=== PATIENT | male | born 1955 | race Caucasian/White ===

== ENCOUNTER → 2016-10-06 | Outpatient (CLI) | payer BC | LOC: RAD 14:15 | PROVIDERS: ATTEND Urology | DX: R10.31 Right lower quadrant pain (principal) | CPT/HCPCS: 74176 ==

== ENCOUNTER 2016-11-20 08:35 | Day surgery (SDC) | payer BC ==
[~2016-11-20 08:35] MED LIST: EPINEPHRINE INJ 1 MG/10 ML DISP.SYRIN ONE; FLUMAZENIL INJ 0.5 MG/5 ML VIAL IV ONE; GLUCAGON,HUMAN RECOMB 1 MG INJ ONE; GLYCOPYRROLATE INJ 0.4 MG/2 ML VIAL ONE; LIDOCAINE 2% JELLY 30 ML TUBE ONE; NALOXONE HCL INJ/PF 0.4 MG/1 ML SDV ONE; ONDANSETRON HCL INJ/PF 4 MG/2 ML SDV ONE; PROMETHAZINE HCL INJ 25 MG/1 ML VIAL ONE
[2016-11-20] MEDS: MIDAZOLAM 2 MG/2 ML INJ ONE ×2 (09:03→09:07)
[2016-11-20] MEDS: FENTANYL CITRATE INJ/PF 100 MCG/2 ML AMPUL ONE ×2 (09:05→09:09)
[2016-11-20 10:25] VITALS: BP 137/93
--- NOTE | 2016-11-20 11:56 | OPERATIVE REPORT E ---
Operative Report NAME: FABRICIO PERERA : 1955 AGE: 61Y DATE OF SURGERY: 11/20/2016 ROOM: PREOPERATIVE DIAGNOSES: Change in bowel habits, constipation. POSTOPERATIVE DIAGNOSES: 1. External hemorrhoids. 2. Sigmoid diverticulosis. PROCEDURE: Colonoscopy. SURGEON: GISSEL ACEVEDO M.D. ANESTHESIA: Versed 2 and fentanyl 100. TISSUE REMOVED OR ALTERED: None. PROCEDURE: Rectal exam, external hemorrhoids. Sigmoid descending colon, diverticulosis. Transverse colon redundant, normal. Ascending colon normal. Cecum normal. Scope withdrawn from cecum, ascending, transverse, descending, sigmoid all the way to the rectum. CONCLUSION: 1. External hemorrhoids. 2. Sigmoid diverticulosis. 3. Redundant colon. 4. No polyps. RECOMMENDATIONS: Soft diet. Consider followup colonoscopy in 10 years. DICTATING PHYSICIAN: GISSEL ACEVEDO M.D. [id number] PHY#: [id number] ID: [id number] JOB#: [id number] ACCT: [id number] cc:GISSEL ACEVEDO M.D., SWETANG M.D. >
--- NOTE | 2016-11-20 11:56 | DISCHARGE SUMMARY E ---
Discharge Summary NAME: FABRICIO PERERA : 1955 AGE: 61Y ADMITTED: 11/20/2016 DISCHARGED: 11/20/2016 HISTORY: This 61-year-old male presents with constipation, change of bowel habits, remote history of polyps. Today's colonoscopy was completed to the cecum. No polyps were seen. Redundant colon. External hemorrhoids, mild. Sigmoid and descending colon diverticulosis, mild. DISCHARGE PLAN: 1. Soft diet. Advance to high-fiber diet in a few days. 2. Consider follow-up colonoscopy in 10 years. DICTATING PHYSICIAN: GISSEL ACEVEDO M.D. [id number] PHY#: [id number] ID: [id number] JOB#: [id number] ACCT: [id number] cc:GISSEL ACEVEDO M.D., SWETANG M.D. >
== END 2016-11-20 10:23 | disposition home or self-care (01) ==
LOC: END 08:35
PROVIDERS: ATTEND Specialist
PROC: 0DJD8ZZ Inspection of Lower Intestinal Tract, Via Natural or Artificial Opening Endoscopic (ICD-10-PCS; principal; 2016-11-20 09:00)
DX: K57.30 Diverticulosis of large intestine without perforation or abscess without bleeding (principal); K64.4 Residual hemorrhoidal skin tags; R19.4 Change in bowel habit; I25.10 Atherosclerotic heart disease of native coronary artery without angina pectoris; I10 Essential (primary) hypertension; Z79.899 Other long term (current) drug therapy; Z88.1 Allergy status to other antibiotic agents; Z91.018 Allergy to other foods
CPT/HCPCS: 45378; J2250; J3010; J1610; J2405; J0171; J2310; J2550; J3490

== ENCOUNTER 2016-11-26 13:21 | Emergency (ER) | payer BC ==
--- NOTE | 2016-11-26 13:39 | ER Document Report ---
ED Medical Screen (RME) - General Stated Complaint: FLANK PAIN Notes: 61 yo male c/o dysuria x 1 month. increased penile pain and bladder pain x 1 week. able to pass urine. no hematuria. + small voids. no fever, + nausea, no vomiting. seen by Dr Richard last month for similar pain, negative CT. + hx/0 kidney stones had colonoscopy last week, Dr Alaniz TRAVEL OUTSIDE OF THE [place] IN LAST 30 DAYS: No - Related Data Allergies/Adverse Reactions: Sulfa (Sulfonamide Antibiotics) Allergy (Severe, Verified 11/26/16 13:34) severe swelling in lips and tongue coffee (Coffea arabica) Adverse Reaction (Intermediate, Verified 11/26/16 13:34) SNEEZING, RUNNY NOSE wheat Adverse Reaction (Intermediate, Verified 11/26/16 13:34) SNEEZING,RUNNY NOSE TAPE Adverse Reaction (Intermediate, Uncoded 11/26/16 13:34) ITCHING Past Medical History - Past Medical History Cardiac Medical History: Reports: Hx Coronary Artery Disease, Hx Hypercholesterolemia, Hx Hypertension, Hx Peripheral Vascular Disease Denies: Hx Congestive Heart Failure, Hx Heart Attack Pulmonary Medical History: Reports: Hx Pneumonia Denies: Hx Asthma, Hx Bronchitis, Hx COPD, Hx Tuberculosis Neurological Medical History: Denies: Hx Cerebrovascular Accident, Hx Seizures Renal/ Medical History: Reports: Hx Benign Prostatic Hyperplasia, Hx Kidney Stones GI Medical History: Reports: Hx Gastroesophageal Reflux Disease, Hx Hiatal Hernia, Hx Ulcer. Denies: Hx Hepatitis Musculoskeltal Medical History: Reports Hx Arthritis Psychiatric Medical History: Reports: Hx Depression Infectious Medical History: Denies: Hx Hepatitis Past Surgical History: Reports: Hx Cardiac Catheterization - 3 stents, Hx Coronary Stent, Hx Orthopedic Surgery - R knee, Carpal Tunnel. Denies: Hx Open Heart Surgery, Hx Pacemaker - Immunizations Hx Diphtheria, Pertussis, Tetanus Vaccination: Yes Physical Exam - Vital signs Vitals: Temp Pulse Resp BP Pulse Ox 97.6 F 64 20 120/93 H 98 11/26/16 13:25 11/26/16 13:25 11/26/16 13:25 11/26/16 13:25 11/26/16 13:25 Course - Vital Signs Vital signs: Temp Pulse Resp BP Pulse Ox 97.6 F 64 20 120/93 H 98 11/26/16 13:25 11/26/16 13:25 11/26/16 13:25 11/26/16 13:25 11/26/16 13:25
[2016-11-26 14:10] LABS: APPEARANCE,URINE CLEAR; BILIRUBIN,URINE NEGATIVE (NEGATIVE); GLUCOSE, URINE NEGATIVE (NEGATIVE); KETONES,URINE NEGATIVE (NEGATIVE); LEUKOCYTE ESTERASE,URINE NEGATIVE (NEGATIVE); NITRITE,URINE NEGATIVE (NEGATIVE); PROTEIN,URINE NEGATIVE (NEGATIVE); URINE SPECIFIC GRAVITY 1.004; UROBILINOGEN,URINE NEGATIVE mg/dL (<2.0)
[2016-11-26 14:22] LABS: ALANINE AMINOTRANSFERASE 28 U/L (21-72); ALBUMIN 4.3 g/dL (3.5-5.0); ALKALINE PHOSPHATASE 69 U/L (38-126); ANION GAP 13 (5-19); ASPARTATE AMINO TRANSFERASE 22 U/L (17-59); BILIRUBIN,TOTAL 0.8 mg/dL (0.2-1.3); BLOOD UREA NITROGEN 16 mg/dL (7-20); CARBON DIOXIDE 29 mmol/L (22-30); CHLORIDE 103 mmol/L (98-107); CREATININE RESULT 1.24 mg/dL (0.52-1.25); GLUCOSE 95 mg/dL (75-110); POTASSIUM 4.5 mmol/L (3.6-5.0); SODIUM 144.6 mmol/L (137-145); TOTAL PROTEIN 7.1 g/dL (6.3-8.2)
[2016-11-26 14:45] LABS: ABSOLUTE BASOPHILS # (AUTO) 0.1 10^3/uL (0.0-0.2); ABSOLUTE EOSINOPHILS # (AUTO) 0.2 10^3/uL (0.0-0.6); ABSOLUTE LYMPHOCYTES (AUTO) 1.6 10^3/uL (0.5-4.7); ABSOLUTE MONOCYTES (AUTO) 0.5 10^3/uL (0.1-1.4); ABSOLUTE NEUT (AUTO) 2.6 10^3/uL (1.7-8.2); BASOPHILS % (AUTO) 1.2 % (0-2); EOSINOPHILS % (AUTO) 3.6 % (0-6); HEMATOCRIT 50.3 % (37.9-51.0); HEMOGLOBIN 16.9 g/dL (13.5-17.0); HGB HCT DIFFERENCE 0.4; LYMPHOCYTES % (AUTO) 32.5 % (13-45); MEAN CORPUSCULAR HEMOGLOBIN 31.2 pg (27.0-33.4); MEAN CORPUSCULAR HGB CONC 33.6 g/dL (32.0-36.0); MEAN CORPUSCULAR VOLUME 93 fl (80-97); MONOCYTES % (AUTO) 9.6 % (3-13); RED BLOOD COUNT 5.42 10^6/uL (4.35-5.55); RED CELL DISTRIBUTION WIDTH 12.7 % (11.5-14.0); SEGMENTED NEUTROPHILS % (AUTO) 53.1 % (42-78)
[2016-11-26 16:11] VITALS: BP 102/63
== END 2016-11-26 16:00 | disposition left against medical advice (07) ==
LOC: ER 13:21
DX: Z53.9 Procedure and treatment not carried out, unspecified reason (principal); R10.9 Unspecified abdominal pain; N48.89 Other specified disorders of penis
CPT/HCPCS: 36415; 80053; 81001; 85025; 99281

== ENCOUNTER → 2016-11-28 | Outpatient (CLI) | payer BC ==
[2016-11-28 10:41] LABS: APPEARANCE,URINE CLEAR; BILIRUBIN,URINE NEGATIVE (NEGATIVE); GLUCOSE, URINE NEGATIVE (NEGATIVE); KETONES,URINE NEGATIVE (NEGATIVE); LEUKOCYTE ESTERASE,URINE NEGATIVE (NEGATIVE); NITRITE,URINE NEGATIVE (NEGATIVE); PROTEIN,URINE NEGATIVE (NEGATIVE); URINE SPECIFIC GRAVITY 1.003; UROBILINOGEN,URINE NEGATIVE mg/dL (<2.0)
[2016-11-28 10:51] LABS: ABSOLUTE BASOPHILS # (AUTO) 0.1 10^3/uL (0.0-0.2); ABSOLUTE EOSINOPHILS # (AUTO) 0.1 10^3/uL (0.0-0.6); ABSOLUTE LYMPHOCYTES (AUTO) 1.2 10^3/uL (0.5-4.7); ABSOLUTE MONOCYTES (AUTO) 0.4 10^3/uL (0.1-1.4); ABSOLUTE NEUT (AUTO) 2.6 10^3/uL (1.7-8.2); BASOPHILS % (AUTO) 1.4 % (0-2); EOSINOPHILS % (AUTO) 2.8 % (0-6); HEMATOCRIT 49.6 % (37.9-51.0); HEMOGLOBIN 16.8 g/dL (13.5-17.0); HGB HCT DIFFERENCE 0.8; LYMPHOCYTES % (AUTO) 27.4 % (13-45); MEAN CORPUSCULAR HGB CONC 33.8 g/dL (32.0-36.0); MEAN CORPUSCULAR VOLUME 92 fl (80-97); MONOCYTES % (AUTO) 9.4 % (3-13); RED CELL DISTRIBUTION WIDTH 12.8 % (11.5-14.0); WHITE BLOOD COUNT 4.5 10^3/uL (4.0-10.5)
== END ==
LOC: OD 09:36
PROVIDERS: ATTEND Specialist
DX: R10.9 Unspecified abdominal pain (principal); N42.89 Other specified disorders of prostate
CPT/HCPCS: 36415; 81001; 84153; 85025

== ENCOUNTER → 2017-01-28 | Outpatient (CLI) | payer BC ==
[2017-01-28 10:22] LABS: HEMATOCRIT 46.4 % (37.9-51.0); HEMOGLOBIN 15.7 g/dL (13.5-17.0); HGB HCT DIFFERENCE 0.7; MEAN CORPUSCULAR HGB CONC 33.9 g/dL (32.0-36.0); MEAN CORPUSCULAR VOLUME 92 fl (80-97); RED BLOOD COUNT 5.07 10^6/uL (4.35-5.55); RED CELL DISTRIBUTION WIDTH 12.7 % (11.5-14.0); WHITE BLOOD COUNT 3.9 10^3/uL (4.0-10.5)
[2017-01-28 10:28] LABS: APPEARANCE,URINE CLEAR; BILIRUBIN,URINE NEGATIVE (NEGATIVE); GLUCOSE, URINE NEGATIVE (NEGATIVE); KETONES,URINE NEGATIVE (NEGATIVE); LEUKOCYTE ESTERASE,URINE NEGATIVE (NEGATIVE); NITRITE,URINE NEGATIVE (NEGATIVE); PROTEIN,URINE NEGATIVE (NEGATIVE); URINE SPECIFIC GRAVITY 1.003; UROBILINOGEN,URINE NEGATIVE mg/dL (<2.0)
[2017-01-28 10:41] LABS: ANION GAP 13 (5-19); BLOOD UREA NITROGEN 17 mg/dL (7-20); CALCIUM 9.5 mg/dL (8.4-10.2); CARBON DIOXIDE 27 mmol/L (22-30); CHLORIDE 102 mmol/L (98-107); CREATININE RESULT 1.13 mg/dL (0.52-1.25); GLUCOSE 80 mg/dL (75-110); SODIUM 141.7 mmol/L (137-145)
== END ==
LOC: OD 09:33
PROVIDERS: ATTEND Internal Medicine Nephrology
DX: N18.2 Chronic kidney disease, stage 2 (mild) (principal); I12.9 Hypertensive chronic kidney disease with stage 1 through stage 4 chronic kidney disease, or unspecified chronic kidney disease; R80.9 Proteinuria, unspecified
CPT/HCPCS: 36415; 80048; 81001; 85027

== ENCOUNTER → 2017-03-26 | Outpatient (CLI) | payer BC ==
--- NOTE | 2017-03-26 14:50 | RADIOLOGY REPORT (SQ) ---
EXAM DESCRIPTION: CHEST PA/LATERAL COMPLETED DATE/TIME: 03/26/2017 2:40 pm REASON FOR STUDY: COUGH COMPARISON: Chest films 03/19/2015, 02/13/2016, 09/05/2016 EXAM PARAMETERS: NUMBER OF VIEWS: two views TECHNIQUE: Digital Frontal and Lateral radiographic views of the chest acquired. RADIATION DOSE: NA LIMITATIONS: none FINDINGS: LUNGS AND PLEURA: No opacities, masses or pneumothorax. No pleural effusion. MEDIASTINUM AND HILAR STRUCTURES: No masses or contour abnormalities. HEART AND VASCULAR STRUCTURES: Heart normal size. No evidence for failure. BONES: No acute findings. HARDWARE: None in the chest. OTHER: No other significant finding. IMPRESSION: NO SIGNIFICANT RADIOGRAPHIC FINDING IN THE CHEST. TECHNICAL DOCUMENTATION: JOB ID: [id number] [employer]- All Rights Reserved
--- NOTE | 2017-03-26 14:51 | RADIOLOGY REPORT (SQ) ---
EXAM DESCRIPTION: PARANASAL SINUSES COMPLETED DATE/TIME: 03/26/2017 2:40 pm REASON FOR STUDY: ACUTE MAXILLARY SINUSITIS, UNSPECIFIED J01.00 ACUTE MAXILLARY SINUSITIS, UNSPECIF IED R05 COUGH COMPARISON: None. NUMBER OF VIEWS: Four views. TECHNIQUE: Images of the paranasal sinuses acquired. LIMITATIONS: None. FINDINGS: ORBITS: No fracture. No foreign body. SINUSES: No mucosal thickening. No air fluid levels. FACIAL BONES: No fracture. OTHER: No other significant finding. IMPRESSION: NO FOREIGN BODY OR FRACTURE. NO PLAIN RADIOGRAPHIC EVIDENCE FOR SINUS DISEASE. TECHNICAL DOCUMENTATION: JOB ID: [id number] [employer]- All Rights Reserved
== END ==
LOC: OD 14:20
PROVIDERS: ATTEND Family Medicine
DX: J01.00 Acute maxillary sinusitis, unspecified (principal); R05 Cough
CPT/HCPCS: 70220; 71020

== ENCOUNTER → 2018-01-22 | Outpatient (CLI) | payer BC ==
[2018-01-22 08:56] LABS: APPEARANCE,URINE CLEAR; BILIRUBIN,URINE NEGATIVE (NEGATIVE); COLOR,URINE YELLOW; GLUCOSE, URINE NEGATIVE (NEGATIVE); KETONES,URINE NEGATIVE (NEGATIVE); LEUKOCYTE ESTERASE,URINE NEGATIVE (NEGATIVE); NITRITE,URINE NEGATIVE (NEGATIVE); PROTEIN,URINE NEGATIVE (NEGATIVE); URINE SPECIFIC GRAVITY 1.015; UROBILINOGEN,URINE NEGATIVE mg/dL (<2.0)
[2018-01-22 08:56] LABS: ABSOLUTE EOSINOPHILS # (AUTO) 0.1 10^3/uL (0.0-0.6); ABSOLUTE LYMPHOCYTES (AUTO) 1.1 10^3/uL (0.5-4.7); ABSOLUTE MONOCYTES (AUTO) 0.4 10^3/uL (0.1-1.4); ABSOLUTE NEUT (AUTO) 1.9 10^3/uL (1.7-8.2); BASOPHILS % (AUTO) 1.4 % (0-2); EOSINOPHILS % (AUTO) 2.7 % (0-6); HEMATOCRIT 46.2 % (37.9-51.0); LYMPHOCYTES % (AUTO) 30.5 % (13-45); MEAN CORPUSCULAR HEMOGLOBIN 31.4 pg (27.0-33.4); MEAN CORPUSCULAR HGB CONC 34.6 g/dL (32.0-36.0); MEAN CORPUSCULAR VOLUME 91 fl (80-97); PLATELET COUNT 186 10^3/uL (150-450); RED BLOOD COUNT 5.09 10^6/uL (4.35-5.55); RED CELL DISTRIBUTION WIDTH 13.5 % (11.5-14.0); SEGMENTED NEUTROPHILS % (AUTO) 54.4 % (42-78); TOTAL CELLS COUNTED % (AUTO) 100 %; WHITE BLOOD COUNT 3.5 10^3/uL (4.0-10.5)
[2018-01-22 09:04] LABS: HEMATOCRIT 46.2 % (37.9-51.0); MEAN CORPUSCULAR HEMOGLOBIN 31.4 pg (27.0-33.4); MEAN CORPUSCULAR HGB CONC 34.6 g/dL (32.0-36.0); MEAN CORPUSCULAR VOLUME 91 fl (80-97); PLATELET COUNT 186 10^3/uL (150-450); RED BLOOD COUNT 5.09 10^6/uL (4.35-5.55); RED CELL DISTRIBUTION WIDTH 13.5 % (11.5-14.0); WHITE BLOOD COUNT 3.5 10^3/uL (4.0-10.5)
[2018-01-22 09:15] LABS: ALANINE AMINOTRANSFERASE 27 U/L (21-72); ALBUMIN 3.9 g/dL (3.5-5.0); ALKALINE PHOSPHATASE 54 U/L (38-126); ANION GAP 11 (5-19); ASPARTATE AMINO TRANSFERASE 22 U/L (17-59); BILIRUBIN,DIRECT 0.3 mg/dL (0.0-0.4); BILIRUBIN,TOTAL 0.5 mg/dL (0.2-1.3); BLOOD UREA NITROGEN 17 mg/dL (7-20); CALCIUM 9.5 mg/dL (8.4-10.2); CARBON DIOXIDE 30 mmol/L (22-30); CHLORIDE 105 mmol/L (98-107); GLUCOSE 95 mg/dL (75-110); POTASSIUM 4.3 mmol/L (3.6-5.0); SODIUM 145.7 mmol/L (137-145); TOTAL PROTEIN 6.5 g/dL (6.3-8.2)
[2018-01-22 09:18] LABS: CALCIUM 9.5 mg/dL (8.4-10.2)
[2018-01-22 09:19] LABS: ALBUMIN 3.9 g/dL (3.5-5.0); ANION GAP 11 (5-19); ASPARTATE AMINO TRANSFERASE 22 U/L (17-59); BLOOD UREA NITROGEN 17 mg/dL (7-20); CARBON DIOXIDE 30 mmol/L (22-30); CHLORIDE 105 mmol/L (98-107); GLUCOSE 95 mg/dL (75-110); POTASSIUM 4.3 mmol/L (3.6-5.0); SODIUM 145.7 mmol/L (137-145)
[2018-01-22 09:20] LABS: ALANINE AMINOTRANSFERASE 27 U/L (21-72); ALKALINE PHOSPHATASE 54 U/L (38-126); BILIRUBIN,DIRECT 0.3 mg/dL (0.0-0.4); BILIRUBIN,TOTAL 0.5 mg/dL (0.2-1.3); CREATINE KINASE 76 U/L (55-170); TOTAL PROTEIN 6.5 g/dL (6.3-8.2)
== END ==
LOC: OD 08:06
PROVIDERS: ATTEND Dermatology
DX: I12.9 Hypertensive chronic kidney disease with stage 1 through stage 4 chronic kidney disease, or unspecified chronic kidney disease (principal); N18.2 Chronic kidney disease, stage 2 (mild); R80.9 Proteinuria, unspecified; Z79.899 Other long term (current) drug therapy
CPT/HCPCS: 36415; 80053; 81001; 82550; 85025; 85027

== ENCOUNTER → 2018-08-02 | Outpatient (CLI) | payer MEDICARE, OTHER ==
[2018-08-02 10:11] LABS: HEMOGLOBIN 15.8 g/dL (13.5-17.0); MEAN CORPUSCULAR HEMOGLOBIN 32.1 pg (27.0-33.4); MEAN CORPUSCULAR HGB CONC 35.1 g/dL (32.0-36.0); MEAN CORPUSCULAR VOLUME 92 fl (80-97); PLATELET COUNT 218 10^3/uL (150-450); RED BLOOD COUNT 4.92 10^6/uL (4.35-5.55); RED CELL DISTRIBUTION WIDTH 12.8 % (11.5-14.0); WHITE BLOOD COUNT 3.8 10^3/uL (4.0-10.5)
[2018-08-02 10:42] LABS: APPEARANCE,URINE CLEAR; BILIRUBIN,URINE NEGATIVE (NEGATIVE); COLOR,URINE YELLOW; GLUCOSE, URINE NEGATIVE (NEGATIVE); KETONES,URINE NEGATIVE (NEGATIVE); LEUKOCYTE ESTERASE,URINE NEGATIVE (NEGATIVE); NITRITE,URINE NEGATIVE (NEGATIVE); PROTEIN,URINE NEGATIVE (NEGATIVE); URINE SPECIFIC GRAVITY 1.006; UROBILINOGEN,URINE NEGATIVE mg/dL (<2.0)
[2018-08-02 10:42] LABS: ANION GAP 9 (5-19); BLOOD UREA NITROGEN 13 mg/dL (7-20); CALCIUM 9.6 mg/dL (8.4-10.2); CARBON DIOXIDE 31 mmol/L (22-30); CHLORIDE 104 mmol/L (98-107); GLUCOSE 84 mg/dL (75-110); POTASSIUM 4.8 mmol/L (3.6-5.0); SODIUM 143.6 mmol/L (137-145)
== END ==
LOC: OD 09:21
PROVIDERS: ATTEND Internal Medicine Nephrology
DX: I12.9 Hypertensive chronic kidney disease with stage 1 through stage 4 chronic kidney disease, or unspecified chronic kidney disease (principal); N18.2 Chronic kidney disease, stage 2 (mild); R80.9 Proteinuria, unspecified
CPT/HCPCS: 36415; 80048; 81001; 85027

== ENCOUNTER → 2018-08-03 | Outpatient (CLI) | payer MEDICARE, OTHER ==
--- NOTE | 2018-08-03 15:57 | RADIOLOGY REPORT (SQ) ---
EXAM DESCRIPTION: KUB COMPLETED DATE/TIME: 08/03/2018 3:45 pm REASON FOR STUDY: CONSTIPATION-SLOW TRANSIT K59.01 SLOW TRANSIT CONSTIPATION COMPARISON: None. NUMBER OF VIEWS: One view. TECHNIQUE: Supine radiographic image of the abdomen acquired. LIMITATIONS: None. FINDINGS: BOWEL GAS PATTERN: Nonobstructive gas pattern. Only a small amount of stool is present. CALCIFICATIONS: Calcifications overlie the left kidney and apparently the right as well. SOFT TISSUES: No gross mass or suggestion of organomegaly. HARDWARE: None in the abdomen. BONES: Mild scoliosis. OTHER: No other significant finding. IMPRESSION: Renal calcifications. Only a small amount of stool is present. Osseous findings as zenia cribed. TECHNICAL DOCUMENTATION: JOB ID: [id number] [employer]- All Rights Reserved Reading location - IP/workstation name: [email or web address]
== END ==
LOC: OD 15:19
PROVIDERS: ATTEND Internal Medicine Gastroenterology
DX: K59.01 Slow transit constipation (principal)
CPT/HCPCS: 74018

== ENCOUNTER 2018-08-10 23:08 | Emergency (ER) | payer MEDICARE, OTHER ==
[2018-08-10] MEDS ORDERED: ASPIRIN 81 MG TABLET, CHEWABLE PO ONE (23:10)
--- NOTE | 2018-08-10 23:36 | RADIOLOGY REPORT (SQ) ---
EXAM DESCRIPTION: XR CHEST 1 VIEW COMPLETED DATE/TME: 08/10/2018 23:10 CLINICAL HISTORY: 63 years, Male, CP COMPARISON: None. NUMBER OF VIEWS: 1 TECHNIQUE: AP portable chest LIMITATIONS: None. FINDINGS: Heart size at the upper limits of normal. Lungs are clear. No pneumothorax IMPRESSION: No acute cardiopulmonary process 2010 [facility] [employer]- All Rights Reserved
[2018-08-10 23:38] LABS: ABSOLUTE BASOPHILS # (AUTO) 0.1 10^3/uL (0.0-0.2); ABSOLUTE EOSINOPHILS # (AUTO) 0.2 10^3/uL (0.0-0.6); ABSOLUTE LYMPHOCYTES (AUTO) 1.7 10^3/uL (0.5-4.7); ABSOLUTE MONOCYTES (AUTO) 0.5 10^3/uL (0.1-1.4); ABSOLUTE NEUT (AUTO) 2.7 10^3/uL (1.7-8.2); BASOPHILS % (AUTO) 1.4 % (0-2); EOSINOPHILS % (AUTO) 4.5 % (0-6); HEMATOCRIT 44.7 % (37.9-51.0); HEMOGLOBIN 15.3 g/dL (13.5-17.0); LYMPHOCYTES % (AUTO) 33.1 % (13-45); MEAN CORPUSCULAR HEMOGLOBIN 31.4 pg (27.0-33.4); MEAN CORPUSCULAR HGB CONC 34.1 g/dL (32.0-36.0); MEAN CORPUSCULAR VOLUME 92 fl (80-97); MONOCYTES % (AUTO) 9.7 % (3-13); PLATELET COUNT 204 10^3/uL (150-450); RED BLOOD COUNT 4.86 10^6/uL (4.35-5.55); SEGMENTED NEUTROPHILS % (AUTO) 51.3 % (42-78); TOTAL CELLS COUNTED % (AUTO) 100 %; WHITE BLOOD COUNT 5.2 10^3/uL (4.0-10.5)
[2018-08-10 23:52] LABS: ALANINE AMINOTRANSFERASE 21 U/L (21-72); ALBUMIN 3.9 g/dL (3.5-5.0); ALKALINE PHOSPHATASE 59 U/L (38-126); ANION GAP 12 (5-19); ASPARTATE AMINO TRANSFERASE 22 U/L (17-59); BILIRUBIN,DIRECT 0.2 mg/dL (0.0-0.4); BILIRUBIN,TOTAL 0.4 mg/dL (0.2-1.3); BLOOD UREA NITROGEN 15 mg/dL (7-20); CALCIUM 9.3 mg/dL (8.4-10.2); CARBON DIOXIDE 27 mmol/L (22-30); CHLORIDE 104 mmol/L (98-107); CREATINE KINASE 56 U/L (55-170); GLUCOSE 91 mg/dL (75-110); POTASSIUM 4.2 mmol/L (3.6-5.0); SODIUM 142.9 mmol/L (137-145); TOTAL PROTEIN 6.5 g/dL (6.3-8.2)
[2018-08-10] MEDS: NITROGLYCERIN 0.4 MG/TAB 25 TAB/BOTTLE SL PRN (23:52)
--- NOTE | 2018-08-10 23:55 | ER Document Report ---
ED General - General Mode of Arrival: Ambulatory Information source: Patient TRAVEL OUTSIDE OF THE [place] IN LAST 30 DAYS: No - HPI Patient complains to provider of: chest pain Onset: This afternoon Onset/Duration: Gradual Quality of pain: Pressure, Sharp Severity: Severe Pain Level: 5 <АНДРЕЙ ALBARRAN - Last Filed: 08/11/18 06:32> <JAIME ARTEAGA - Last Filed: 08/13/18 23:37> - General Chief Complaint: Chest Pain Stated Complaint: CHEST PAIN Time Seen by Provider: 08/10/18 23:22 - HPI Notes: Is a 63-year-old male with past medical history of coronary artery disease status post stent x4 in March 2018 on Plavix, hypertension, hyperlipidemia, GERD who presents to the emergency department with chest pain that started this afternoon. He endorses he was at rest and had this deep dull pain located in the left lower sternal border. He took nitroglycerin sublingual x2 with no relief and 5 baby aspirin. Went to lay down and then the pain became sharp and unbearable. Patient states this pain felt different than the last time he had an anginal episode. He endorses the pain radiated to his right shoulder. Patient endorses dizziness, lightheadedness, nausea, clammy when the episode happened. Patient denied diaphoresis loss of consciousness. (АНДРЕЙ ALBARRAN ) - Related Data Allergies/Adverse Reactions: Sulfa (Sulfonamide Antibiotics) Allergy (Severe, Verified 11/26/16 13:34) severe swelling in lips and tongue coffee (Coffea arabica) Adverse Reaction (Intermediate, Verified 11/26/16 13:34) SNEEZING, RUNNY NOSE wheat Adverse Reaction (Intermediate, Verified 11/26/16 13:34) SNEEZING,RUNNY NOSE TAPE Adverse Reaction (Intermediate, Uncoded 11/26/16 13:34) ITCHING Past Medical History - General Information source: Patient - Social History Smoking Status: Never Smoker Chew tobacco use (# tins/day): No Frequency of alcohol use: None Drug Abuse: None Family History: Reviewed & Not Pertinent Patient has suicidal ideation: No Patient has homicidal ideation: No - Past Medical History Cardiac Medical History: Reports: Hx Coronary Artery Disease, Hx Hypercholesterolemia, Hx Hypertension, Hx Peripheral Vascular Disease Denies: Hx Congestive Heart Failure, Hx Heart Attack Pulmonary Medical History: Reports: Hx Pneumonia Denies: Hx Asthma, Hx Bronchitis, Hx COPD, Hx Tuberculosis Neurological Medical History: Denies: Hx Cerebrovascular Accident, Hx Seizures Renal/ Medical History: Reports: Hx Benign Prostatic Hyperplasia, Hx Kidney Stones. Denies: Hx Peritoneal Dialysis GI Medical History: Reports: Hx Gastroesophageal Reflux Disease, Hx Hiatal Hernia, Hx Ulcer. Denies: Hx Hepatitis Musculoskeletal Medical History: Reports Hx Arthritis Psychiatric Medical History: Reports: Hx Depression Infectious Medical History: Denies: Hx Hepatitis Past Surgical History: Reports: Hx Cardiac Catheterization - 3 stents, Hx Coronary Stent, Hx Orthopedic Surgery - R knee, Carpal Tunnel. Denies: Hx Open Heart Surgery, Hx Pacemaker - Immunizations Hx Diphtheria, Pertussis, Tetanus Vaccination: Yes <АНДРЕЙ ALBARRAN - Last Filed: 08/11/18 06:32> Review of Systems - Review of Systems Constitutional: Chills, Malaise. denies: Diaphoresis EENT: No symptoms reported Respiratory: No symptoms reported Gastrointestinal: No symptoms reported Genitourinary: No symptoms reported Male Genitourinary: No symptoms reported Musculoskeletal: No symptoms reported Skin: No symptoms reported Hematologic/Lymphatic: No symptoms reported Neurological/Psychological: No symptoms reported <АНДРЕЙ ALBARRAN - Last Filed: 08/11/18 06:32> Physical Exam - Vital signs Interpretation: Normal - General General appearance: Appears well, Alert In distress: Mild - HEENT Head: Normocephalic, Atraumatic Eyes: Normal Neck: Normal - Respiratory Respiratory status: No respiratory distress Chest status: Nontender Breath sounds: Normal Chest palpation: Normal - Cardiovascular Rhythm: Regular Heart sounds: Normal auscultation Murmur: No Pulses: Normal: Radial, Posterior tibial, Dorsalis pedis - Abdominal Inspection: Normal Distension: No distension Bowel sounds: Normal Tenderness: Nontender Organomegaly: No organomegaly - Back Back: Normal, Nontender - Extremities General upper extremity: Normal inspection, Nontender, Normal color, Normal ROM , Normal temperature General lower extremity: Normal inspection, Nontender, Normal color, Normal ROM , Normal temperature, Normal weight bearing. No: Gifyt's sign - Neurological Neuro grossly intact: Yes Cognition: Normal Orientation: AAOx4 [place] Coma Scale Eye Opening: Spontaneous Ronnie Coma Scale Verbal: Oriented [place] Coma Scale Motor: Obeys Commands Ronnie Coma Scale Total: 15 Speech: Normal Motor strength normal: LUE, RUE, LLE, RLE Sensory: Normal - Psychological Associated symptoms: Normal affect, Normal mood - Skin Skin Temperature: Warm Skin Moisture: Dry Skin Color: Normal <АНДРЕЙ ALBARRAN - Last Filed: 08/11/18 06:32> - Vital signs Vitals: Resp 13 08/10/18 23:14 Course - Laboratory Result Diagrams: 08/10/18 23:30 08/10/18 23:30 <АНДРЕЙ ALBARRAN - Last Filed: 08/11/18 06:32> - Laboratory Result Diagrams: 08/10/18 23:30 08/10/18 23:30 <JAIME ARTEAGA - Last Filed: 08/13/18 23:37> - Re-evaluation Re-evalutation: 08/11/18 00:00 EKG showed no evidence of STEMI or ischemia. Labs drawn. While examining the patient he was having excruciating pain, described as crushing in nature. Patient was given nitro 0.4 sublingual x1. Patient endorsed pain improved to 1 or 2 after first dose but then started having severe pain again. Will give additional dose of nitro sublingual. 08/11/18 00:02 08/11/18 00:[address] Arteaga. Patient endorses ongoing chest pain. Have ordered Nitropaste and will give 2 mg of morphine. Patient's pipe organ mechanic apprentice is Dr. Merino in [place]. Repeat EKG ordered, chest x-ray showed no acute cardiopulmonary process. 08/11/18 00:14 08/11/18 00:25 08/11/18 01:20 Spoke with Vielka Oquendo, the cardiology PA sr. manager corporate communications for Dr. Vaibhav Merino. She knows patient very well and recommended getting one more troponin. If that troponin is negative she is comfortable with discharging him home with close follow-up in the office. 08/11/18 03:32 Second troponin was negative. Discussed with patient possibility of admitting on observation versus discharging home. We recommended a period of observation due to the fact that he had a recent stent and additional lesions in other coronary vessels. Patient indicated that he wanted to discharge home with follow-up in the cardiology office this morning. (АНДРЕЙ ALBARRAN) 08/11/18 00:38 Patient was initially seen by the PA. I went to the patient after discussing the case with him. Patient 63-year-old male with a history of coronary stenting. Last stent was placed in March in [place]. His pipe organ mechanic apprentice Dr. Merino in [place]. At that time the heart catheter was noticed that had a 50% and another 30% lesion at that time which did not need stenting. He says tonight he started having the chest pain. He took some of his home nitro which did not help. He was given nitro here which has helped. He still has some residual chest pain. We will Place Nitropaste on him and give him a very small dose of morphine to try to help relieve the remainder of his pain. Initial EKG did not show any ischemic changes except for occasional PVC. I does have a repeat EKG performed which shows sinus rhythm with a rate of [address] segment changes. Awaiting troponin results. We will continue to closely monitor the patient until workup is complete. 08/13/18 23:36 I also spoke with the patient. I informed him that the pipe organ mechanic apprentice did recommend either staying the night or follow-up closely in office. Informed him that based on his history felt that staying in the hospital overnight for observation will be much safer. Informed just because his troponins are negative now does not mean that he does not have a potential impending UT the next 24 hours. Patient understands this but he says he is pain-free and would like to go home. He says that she does not was see in the hospital any longer and would call his pipe organ mechanic apprentice first in the morning. I informed him that we will discharge him as he request however we are more than happy to take care of him at any time and strongly requested he return to ER immediately if he has any recurrence of pain. Patient agrees with plan will be discharged home and will call his pipe organ mechanic apprentice as soon as the office opens. Dictation of this chart was performed using voice recognition software; therefore, there may be some unintended grammatical errors. (JAIME ARTEAGA) - Vital Signs Vital signs: Temp Pulse Resp BP Pulse Ox 98.1 F 10 L 106/68 96 08/11/18 03:00 08/11/18 03:01 08/11/18 03:00 08/11/18 03:01 Discharge <АНДРЕЙ ALBARRAN - Last Filed: 08/11/18 06:32> <JAIME ARTEAGA - Last Filed: 08/13/18 23:37> - Discharge Condition: Good Disposition: HOME, SELF-CARE Referrals: ANIA HARRISON MD [Primary Care Provider] - Follow up as needed
[2018-08-11] MEDS: NITROGLYCERIN 0.4 MG/TAB 25 TAB/BOTTLE SL PRN (00:01)
[2018-08-11 00:03] LABS: CREATINE KINASE MB 0.52 ng/mL (<4.55)
[2018-08-11 00:09] LABS: TROPONIN I < 0.012 ng/mL
[2018-08-11] MEDS ORDERED: NITROGLYCERIN 2% OINTMENT 1 GM PACKET TP ONE (00:11)
[2018-08-11] MEDS ORDERED: MORPHINE SULFATE 10 MG/ML INJ IV ONE (00:11)
[2018-08-11 06:37] VITALS: BP 106/68
--- NOTE | 2018-08-11 07:21 | EKG REPORT ---
SEVERITY:- BORDERLINE ECG - SINUS RHYTHM VPC : Confirmed by: Dagoberto Pruett 11-Aug-2018 07:21:14
--- NOTE | 2018-08-11 07:21 | EKG REPORT ---
SEVERITY:- NORMAL ECG - SINUS RHYTHM : Confirmed by: Dagoberto Pruett 11-Aug-2018 07:20:24
--- NOTE | 2018-08-12 09:02 | EKG REPORT ---
SEVERITY:- NORMAL ECG - SINUS RHYTHM : Confirmed by: Dagoberto Pruett 12-Aug-2018 09:01:10
== END 2018-08-11 03:30 | disposition home or self-care (01) ==
LOC: ER 23:08
DX: R07.9 Chest pain, unspecified (principal); R42 Dizziness and giddiness; R11.0 Nausea; R68.83 Chills (without fever); R53.81 Other malaise; I10 Essential (primary) hypertension; I49.3 Ventricular premature depolarization; I25.10 Atherosclerotic heart disease of native coronary artery without angina pectoris; Z95.5 Presence of coronary angioplasty implant and graft; Z79.02 Long term (current) use of antithrombotics/antiplatelets; Z88.2 Allergy status to sulfonamides
CPT/HCPCS: 93005 ×2; 99285; 96374; 36415; 82553; 82550; 85025; 80053; 84484; 71045; 93010; A9270; J2270

== ENCOUNTER → 2018-08-12 | Outpatient (CLI) | payer MEDICARE, OTHER ==
--- NOTE | 2018-08-12 13:36 | RADIOLOGY REPORT (SQ) ---
EXAM DESCRIPTION: CAROTID DOPPLER COMPLETED DATE/TIME: 08/12/2018 12:03 pm REASON FOR STUDY: CAROTID STENOSIS I65.23 OCCLUSION AND STENOSIS OF BILATERAL CAROTID ARTERIES I10 ESSENTIAL (PRIMARY) HYPERTENSION COMPARISON: None. TECHNIQUE: Grayscale ultrasound, Doppler velocity and spectra, and color Doppler images acquired of the extra-cranial carotid and vertebral arteries. Images stored on PACS. LIMITATIONS: None. FINDINGS: RIGHT CAROTID CCA Velocities: 93 centimeters/second ICA Velocities Peak systolic 65 cm/s. End diastolic 25 cm/s. Proximal ICA/CCA peak systolic ratio 0.75. Spectra normal. No significant plaque. LEFT CAROTID CCA Velocities: 85 centimeters/seconds ICA Velocities Peak systolic 86 cm/s. End diastolic 35 cm/s. Proximal ICA/CCA peak systolic ratio 1. There is a small amount of plaque in the carotid bulb. VERTEBRAL ARTERIES: Antegrade flow. Normal waveforms. SUBCLAVIAN ARTERIES: No finding. OTHER: No other significant finding. IMPRESSION: NO HEMODYNAMICALLY SIGNIFICANT STENOSIS. COMMENT: Quality ID #[id number]: Velocity criteria are extrapolated from the diameter data as defined by t he Society of Radiologists in Ultrasound Consensus Conference. Radiology 2003: 229; 340-346. TECHNICAL DOCUMENTATION: JOB ID: [id number] [employer]- All Rights Reserved Reading location - IP/workstation name: [email or web address]
== END ==
LOC: SP 09:43
PROVIDERS: ATTEND Internal Medicine Nephrology
DX: I65.23 Occlusion and stenosis of bilateral carotid arteries (principal); I10 Essential (primary) hypertension
CPT/HCPCS: 93880

== ENCOUNTER → 2019-04-04 | Outpatient (CLI) | payer MEDICARE, OTHER ==
[2019-04-04 08:10] LABS: HEMATOCRIT 45.3 % (37.9-51.0); MEAN CORPUSCULAR HEMOGLOBIN 30.2 pg (27.0-33.4); MEAN CORPUSCULAR HGB CONC 33.1 g/dL (32.0-36.0); MEAN CORPUSCULAR VOLUME 91 fl (80-97); PLATELET COUNT 237 10^3/uL (150-450); RED BLOOD COUNT 4.97 10^6/uL (4.35-5.55); RED CELL DISTRIBUTION WIDTH 13.6 % (11.5-14.0); WHITE BLOOD COUNT 3.9 10^3/uL (4.0-10.5)
[2019-04-04 08:29] LABS: APPEARANCE,URINE CLEAR; BILIRUBIN,URINE NEGATIVE (NEGATIVE); COLOR,URINE YELLOW; GLUCOSE, URINE NEGATIVE (NEGATIVE); KETONES,URINE NEGATIVE (NEGATIVE); URINE SPECIFIC GRAVITY 1.012
[2019-04-04 08:30] LABS: LEUKOCYTE ESTERASE,URINE NEGATIVE (NEGATIVE); NITRITE,URINE NEGATIVE (NEGATIVE); PROTEIN,URINE NEGATIVE (NEGATIVE); UROBILINOGEN,URINE NEGATIVE mg/dL (<2.0)
[2019-04-04 08:44] LABS: ANION GAP 9 (5-19); BLOOD UREA NITROGEN 14 mg/dL (7-20); CALCIUM 9.1 mg/dL (8.4-10.2); CARBON DIOXIDE 28 mmol/L (22-30); CHLORIDE 105 mmol/L (98-107); GLUCOSE 116 mg/dL (75-110); POTASSIUM 4.4 mmol/L (3.6-5.0); SODIUM 141.6 mmol/L (137-145)
== END ==
LOC: OD 07:34
PROVIDERS: ATTEND Internal Medicine Nephrology
DX: I12.9 Hypertensive chronic kidney disease with stage 1 through stage 4 chronic kidney disease, or unspecified chronic kidney disease (principal); N18.2 Chronic kidney disease, stage 2 (mild)
CPT/HCPCS: 36415; 80048; 81001; 85027

== ENCOUNTER 2019-05-08 13:48 | Emergency (ER) | payer MEDICARE, OTHER ==
--- NOTE | 2019-05-08 14:29 | EKG REPORT ---
SEVERITY:- NORMAL ECG - SINUS RHYTHM : Confirmed by: Agustín Neville MD 08-May-2019 14:27:59
[2019-05-08] MEDS ORDERED: NITROGLYCERIN 0.4 MG/TAB 25 TAB/BOTTLE SL PRN (14:53)
[2019-05-08] MEDS ORDERED: ASPIRIN 81 MG TABLET, CHEWABLE PO ONE (14:53)
--- NOTE | 2019-05-08 14:56 | ER Document Report ---
ED Medical Screen (RME) - General Chief Complaint: Shortness Of Breath Stated Complaint: DIFFICULTY BREATHING Time Seen by Provider: 05/08/19 14:53 Primary Care Provider: Bailey LIZ MD [Primary Care Provider] - Follow up as needed Notes: Patient is a 64-year-old male who presents to the emergency department with shortness of breath and difficulty breathing. He states that he started to have symptoms this morning. He states that when he tries to take a deep breath and hands up having chest pain. Patient states that he has history of 4 stents in the past and his last stent placement was this past January. He was on Plavix, but the Plavix was discontinued this past February. Patient states that every time he walks or talks he gets short of breath. Exam: S1, S2. Clear breath sounds noted in all lung samaniego. I have greeted and performed a rapid initial assessment of this patient. A comprehensive ED assessment and evaluation of the patient, analysis of test results and completion of medical decision making process will be conducted by an additional ED providers. TRAVEL OUTSIDE OF THE [place] IN LAST 30 DAYS: No - Related Data Allergies/Adverse Reactions: Sulfa (Sulfonamide Antibiotics) Allergy (Severe, Verified 11/26/16 13:34) severe swelling in lips and tongue coffee (Coffea arabica) Adverse Reaction (Intermediate, Verified 11/26/16 13:34) SNEEZING, RUNNY NOSE wheat Adverse Reaction (Intermediate, Verified 11/26/16 13:34) SNEEZING,RUNNY NOSE TAPE Adverse Reaction (Intermediate, Uncoded 11/26/16 13:34) ITCHING Past Medical History - Past Medical History Cardiac Medical History: Reports: Hx Coronary Artery Disease, Hx Hypercholesterolemia, Hx Hypertension, Hx Peripheral Vascular Disease Denies: Hx Congestive Heart Failure, Hx Heart Attack Pulmonary Medical History: Reports: Hx Pneumonia Denies: Hx Asthma, Hx Bronchitis, Hx COPD, Hx Tuberculosis Neurological Medical History: Denies: Hx Cerebrovascular Accident, Hx Seizures Renal/ Medical History: Reports: Hx Benign Prostatic Hyperplasia, Hx Kidney Stones. Denies: Hx Peritoneal Dialysis GI Medical History: Reports: Hx Gastroesophageal Reflux Disease, Hx Hiatal Hernia, Hx Ulcer. Denies: Hx Hepatitis Musculoskeltal Medical History: Reports Hx Arthritis Psychiatric Medical History: Reports: Hx Depression Infectious Medical History: Denies: Hx Hepatitis Past Surgical History: Reports: Hx Cardiac Catheterization - 3 stents, Hx Coronary Stent, Hx Orthopedic Surgery - R knee, Carpal Tunnel. Denies: Hx Open Heart Surgery, Hx Pacemaker - Immunizations Hx Diphtheria, Pertussis, Tetanus Vaccination: Yes Physical Exam - Vital signs Vitals: Pulse Resp BP Pulse Ox 70 18 146/80 H 99 05/08/19 13:52 05/08/19 13:52 05/08/19 13:52 05/08/19 13:52 Course - Vital Signs Vital signs: Temp Pulse Resp BP Pulse Ox 97.6 F 70 18 146/80 H 99 05/08/19 14:03 05/08/19 13:52 05/08/19 13:52 05/08/19 13:52 05/08/19 13:52 Doctor's Discharge - Discharge Referrals: Bailey LIZ MD [Primary Care Provider] - Follow up as needed
--- NOTE | 2019-05-08 15:01 | RADIOLOGY REPORT (SQ) ---
EXAM DESCRIPTION: CHEST 2 VIEWS COMPLETED DATE/TIME: 05/08/2019 2:42 pm REASON FOR STUDY: dyspnea COMPARISON: 08/10/2018 TECHNIQUE: Frontal and lateral radiographic views of the chest acquired. NUMBER OF VIEWS: Two view. LIMITATIONS: None. FINDINGS: LUNGS AND PLEURA: No pneumothorax. No consolidation or pleural effusion. MEDIASTINUM AND HILAR STRUCTURES: Stable. HEART AND VASCULAR STRUCTURES: Stable. BONES: No acute findings. HARDWARE: None in the chest. OTHER: No other significant finding. IMPRESSION: NO ACUTE FINDINGS. TECHNICAL DOCUMENTATION: JOB ID: [id number] [employer]- All Rights Reserved Reading location - IP/workstation name: [email or web address]
--- NOTE | 2019-05-08 16:31 | ER Document Report ---
ED General - General Chief Complaint: Shortness Of Breath Stated Complaint: DIFFICULTY BREATHING Time Seen by Provider: 05/08/19 14:53 Primary Care Provider: Bailey LIZ MD [ACTIVE STAFF] - Follow up as needed Notes: 64-year-old male presents emergency department complaining of chest tightness and shortness of breath. Patient states that every day he normally walks 3 miles however this morning he had to stop walking in the 2 mile jone because he was so short of breath. States it was associated with tightness in his chest, currently he says it is 1-2 out of 5 while resting but while he is walking it is a 4-5 out of 5. Patient's pain was also decreased with the nitroglycerin he took at home. Patient then went to [facility] and the pain worsened again so he came to the emergency department. Patient has a history of 4 different stents, last one was placed 1 year ago on 01/2018 at [facility]. Denies nausea, denies abdominal pain, denies diaphoresis. Grandfather from a heart attack in his 50s, father had an MS but he does not know at which age. TRAVEL OUTSIDE OF THE [place] IN LAST 30 DAYS: No - Related Data Allergies/Adverse Reactions: Sulfa (Sulfonamide Antibiotics) Allergy (Severe, Verified 11/26/16 13:34) severe swelling in lips and tongue coffee (Coffea arabica) Adverse Reaction (Intermediate, Verified 11/26/16 13:34) SNEEZING, RUNNY NOSE wheat Adverse Reaction (Intermediate, Verified 11/26/16 13:34) SNEEZING,RUNNY NOSE TAPE Adverse Reaction (Intermediate, Uncoded 11/26/16 13:34) ITCHING Past Medical History - General Information source: Patient - Social History Smoking Status: Never Smoker Chew tobacco use (# tins/day): No Frequency of alcohol use: Social Drug Abuse: None Family History: Reviewed & Not Pertinent Patient has suicidal ideation: No Patient has homicidal ideation: No - Past Medical History Cardiac Medical History: Reports: Hx Coronary Artery Disease, Hx Hypercholestero lemia, Hx Hypertension, Hx Peripheral Vascular Disease Denies: Hx Congestive Heart Failure, Hx Heart Attack Pulmonary Medical History: Reports: Hx Pneumonia Denies: Hx Asthma, Hx Bronchitis, Hx COPD, Hx Tuberculosis Neurological Medical History: Denies: Hx Cerebrovascular Accident, Hx Seizures Renal/ Medical History: Reports: Hx Benign Prostatic Hyperplasia, Hx Kidney Stones. Denies: Hx Peritoneal Dialysis GI Medical History: Reports: Hx Gastroesophageal Reflux Disease, Hx Hiatal Hernia, Hx Ulcer. Denies: Hx Hepatitis Musculoskeletal Medical History: Reports Hx Arthritis Psychiatric Medical History: Reports: Hx Depression Infectious Medical History: Denies: Hx Hepatitis Past Surgical History: Reports: Hx Cardiac Catheterization - 3 stents, Hx Coronary Stent, Hx Orthopedic Surgery - R knee, Carpal Tunnel. Denies: Hx Open Heart Surgery, Hx Pacemaker - Immunizations Hx Diphtheria, Pertussis, Tetanus Vaccination: Yes Review of Systems - Review of Systems Constitutional: No symptoms reported EENT: No symptoms reported Cardiovascular: See HPI Respiratory: See HPI Gastrointestinal: No symptoms reported -: Yes All other systems reviewed and negative Physical Exam - Vital signs Vitals: Pulse Resp BP Pulse Ox 70 18 146/80 H 99 05/08/19 13:52 05/08/19 13:52 05/08/19 13:52 05/08/19 13:52 Interpretation: Hypertensive - Notes Notes: GENERAL: Alert, interacts well. Flushed, appears somewhat uncomfortable. HEAD: Normocephalic, atraumatic EYES: Pupils equal, round and reactive to light, extraocular movements intact. ENT: Oral mucosa moist, tongue midline. NECK: Full range of motion, supple, trachea midline. LUNGS: Clear to auscultation bilaterally, no wheezes, rales or rhonchi, no respiratory distress. HEART: Regular rate and rhythm, no murmurs, gallops, rubs. ABDOMEN: Soft, nontender, nondistended, bowel sounds present in all 4 quadrants. EXTREMITIES: Moves all 4 extremities spontaneously, no edema, radial and dorsalis pedis pulses 2/4 bilaterally. No cyanosis. NEUROLOGICAL: Alert and oriented x3, normal speech, no facial droop, biceps and patellar DTRs 2+ bilaterally. PSYCH: Normal mood, normal affect. SKIN: Warm, Dry, normal turgor, flushed. Course - Re-evaluation Re-evalutation: 05/08/19 17:23 CBC unremarkable, d-dimer negative, CMP shows slightly elevated creatinine 1.29 otherwise unremarkable, initial cardiac enzymes negative, proBNP unremarkable at 116, chest x-ray shows no acute process, EKG is nonischemic, patient is chest pain-free after 1 additional nitroglycerin here. Discussed with Dr. Shana Beaulieu who states that he would like me to discuss this patient with Dr. Merino or someone else from the cardiology group as the patient is high risk and may end up needing another stent. He does not want to keep the patient at this hospital until we have discussed them with the patient's primary power barker. 05/08/19 19:03 Dr. Beaulieu did personally see and examined this patient, still recommends discussing with Dr. Merino, I did call and speak with Dr. Ghosh from [facility] who accepts the patient to his service at [facility]. 05/08/19 21:32 I did evaluate the patient at 20:11 and the patient was stable for transport at that time. Transport crew picked up at approximately 2030. - Vital Signs Vital signs: Temp Pulse Resp BP Pulse Ox 97.6 F 70 16 144/97 H 98 05/08/19 14:03 05/08/19 13:52 05/08/19 20:01 05/08/19 20:01 05/08/19 20:01 - Laboratory Result Diagrams: 05/08/19 16:08 05/08/19 16:08 Laboratory results interpreted by me: 05/08/19 16:08 Creatinine 1.29 H Est GFR (Non-Af Amer) 56 L - EKG Interpretation by Me Additional EKG results interpreted by me: 05/08/19 16:30 EKG shows sinus rhythm at a rate of 60, normal axis, normal intervals, no ST segment elevations or depressions, T wave inversions noted in lead III per my interpretation. 05/08/19 19:04 Repeat EKG shows sinus bradycardia at a rate of 45, normal axis, normal intervals, no ST segment elevations or depressions, T wave inversions noted in lead III unchanged from prior EKG, rapid R wave progression per my interpretation. Critical Care Note - Critical Care Note Total time excluding time spent on procedures (mins): 35 Discharge - Discharge Clinical Impression: Unstable angina Condition: Fair Disposition: [facility] Referrals: Bailey LIZ MD [ACTIVE STAFF] - Follow up as needed
[2019-05-08 16:33] LABS: ABSOLUTE BASOPHILS # (AUTO) 0.1 10^3/uL (0.0-0.2); ABSOLUTE EOSINOPHILS # (AUTO) 0.2 10^3/uL (0.0-0.6); ABSOLUTE LYMPHOCYTES (AUTO) 1.1 10^3/uL (0.5-4.7); ABSOLUTE MONOCYTES (AUTO) 0.4 10^3/uL (0.1-1.4); ABSOLUTE NEUT (AUTO) 3.1 10^3/uL (1.7-8.2); BASOPHILS % (AUTO) 1.2 % (0-2); EOSINOPHILS % (AUTO) 4.2 % (0-6); HEMATOCRIT 44.5 % (37.9-51.0); HEMOGLOBIN 14.9 g/dL (13.5-17.0); MEAN CORPUSCULAR HEMOGLOBIN 30.8 pg (27.0-33.4); MEAN CORPUSCULAR HGB CONC 33.5 g/dL (32.0-36.0); MEAN CORPUSCULAR VOLUME 92 fl (80-97); MONOCYTES % (AUTO) 8.8 % (3-13); PLATELET COUNT 193 10^3/uL (150-450); RED BLOOD COUNT 4.84 10^6/uL (4.35-5.55); RED CELL DISTRIBUTION WIDTH 13.8 % (11.5-14.0); SEGMENTED NEUTROPHILS % (AUTO) 62.8 % (42-78); TOTAL CELLS COUNTED % (AUTO) 100 %; WHITE BLOOD COUNT 4.9 10^3/uL (4.0-10.5)
[2019-05-08 16:48] LABS: ALBUMIN 3.9 g/dL (3.5-5.0); ALKALINE PHOSPHATASE 57 U/L (38-126); ANION GAP 7 (5-19); ASPARTATE AMINO TRANSFERASE 20 U/L (17-59); BILIRUBIN,DIRECT 0.4 mg/dL (0.0-0.4); BILIRUBIN,TOTAL 0.6 mg/dL (0.2-1.3); BLOOD UREA NITROGEN 15 mg/dL (7-20); CALCIUM 9.3 mg/dL (8.4-10.2); CARBON DIOXIDE 29 mmol/L (22-30); CHLORIDE 106 mmol/L (98-107); CREATINE KINASE 97 U/L (55-170); GLUCOSE 83 mg/dL (75-110); POTASSIUM 4.2 mmol/L (3.6-5.0); TOTAL PROTEIN 6.4 g/dL (6.3-8.2)
[2019-05-08 16:59] LABS: CREATINE KINASE MB 0.75 ng/mL (<4.55); NT PRO BNP 116 pg/mL (5-900)
[2019-05-08 17:00] LABS: TROPONIN I < 0.012 ng/mL
[2019-05-08] MEDS ORDERED: NITROGLYCERIN 2% OINTMENT 1 GM PACKET TP ONE (18:07)
[2019-05-08] MEDS ORDERED: ENOXAPARIN SODIUM INJ 80 MG/0.8 ML DISP.SYRIN SUBCUT ONE (18:07)
--- NOTE | 2019-05-08 18:43 | PDOC PROGRESS REPORT ---
Subjective Progress Note for:: 05/08/19 Subjective:: This is a 64-year-old male very well-known for nm with the history of the coronary artery disease status post stent placement at [facility] by Dr. Merino the last one was placed on the last me and patient was taking the Plavix until the February and patient stopped the medicines because of the bruise issues also on Ranexa and history of the gastroesophageal reflux disease hypertension's hyperlipidemia and osteoarthritis and chronic constipation's with some irritable bowel syndromes present in the emergency department with a complaint of chest pain Patient usually walks 3 miles per day and 2 days when patients noticed that started developing the chest pain he described in the left side and grasping for the air not radiating anywhere else not feel like any chest wall pain not feel like any heartburns he feels like pains comes and goes constantly and patient decided to come to the emergency department In the ER patient's initial EKG and cardiac enzyme is all negative patient is received a nitro which relieved the pain but patient still pain come back Patient when I saw in the emergency departments feeling comfortable but still describing the on and off pain coming Patient's denied any headache denied any nausea no vomiting no abdominal pain Patient's O2 sat is 100%'s on the room air Patient's heart rate is dropping around 40-60 range but normally running around 60+ patient's denied any dizziness no headache Reason For Visit: DIFFICULTY BREATHING Physical Exam Vital Signs: Temp Pulse Resp BP Pulse Ox 97.6 F 70 18 146/80 H 99 05/08/19 14:03 05/08/19 13:52 05/08/19 13:52 05/08/19 13:52 05/08/19 13:52 Intake & Output 05/07/19 05/08/19 05/09/19 06:59 06:59 06:59 Weight 82.6 kg General appearance: PRESENT: no acute distress, well-developed, well-nourished Head exam: PRESENT: atraumatic, normocephalic Eye exam: PRESENT: conjunctiva pink, EOMI, PERRLA. ABSENT: scleral icterus Ear exam: PRESENT: normal external ear exam Mouth exam: PRESENT: moist, tongue midline Neck exam: PRESENT: full ROM. ABSENT: carotid bruit, JVD, lymphadenopathy, thyromegaly Respiratory exam: PRESENT: clear to auscultation crescencio Cardiovascular exam: PRESENT: RRR. ABSENT: diastolic murmur, rubs, systolic murmur Pulses: PRESENT: normal dorsalis pedis pul, +2 pedal pulses bilateral Vascular exam: PRESENT: normal capillary refill GI/Abdominal exam: PRESENT: normal bowel sounds, soft. ABSENT: distended, guarding, mass, organolmegaly, rebound, tenderness Rectal exam: PRESENT: deferred Extremities exam: ABSENT: pedal edema Musculoskeletal exam: PRESENT: ambulatory Neurological exam: PRESENT: alert, awake, oriented to person, oriented to place, oriented to time, oriented to situation, CN II-XII grossly intact. ABSENT: motor sensory deficit Psychiatric exam: PRESENT: appropriate affect, normal mood. ABSENT: homicidal ideation, suicidal ideation Skin exam: PRESENT: dry, intact, warm. ABSENT: cyanosis, rash Results Laboratory Results: 05/08/19 16:08 05/08/19 16:08 05/08/19 05/08/19 16:08 16:08 WBC 4.9 RBC 4.84 Hgb 14.9 Hct 44.5 MCV 92 MCH 30.8 MCHC 33.5 RDW 13.8 Plt Count 193 Seg Neutrophils % 62.8 Lymphocytes % 23.0 Monocytes % 8.8 Eosinophils % 4.2 Basophils % 1.2 Absolute Neutrophils 3.1 Absolute Lymphocytes 1.1 Absolute Monocytes 0.4 Absolute Eosinophils 0.2 Absolute Basophils 0.1 Sodium 142.3 Potassium 4.2 Chloride 106 Carbon Dioxide 29 Anion Gap 7 BUN 15 Creatinine 1.29 H Est GFR ( Amer) > 60 Est GFR (Non-Af Amer) 56 L Glucose 83 Calcium 9.3 Magnesium 2.1 Total Bilirubin 0.6 AST 20 Alkaline Phosphatase 57 Total Protein 6.4 Albumin 3.9 05/08/19 05/08/19 16:08 16:08 Creatine Kinase 97 CK-MB (CK-2) 0.75 Troponin I < 0.012 NT-Pro-B Natriuret Pep 116 Impressions: Chest X-Ray 05/08/19 00:00 IMPRESSION: NO ACUTE FINDINGS. Assessment & Plan - Diagnosis (1) Unstable angina Is this a current diagnosis for this admission?: Yes Plan: Is likely related to the unstable angina due to the recent Plavix is stopped Not sure patients definitely needs some cardiology evaluations Patients currently see a [facility]ology will contact development and cardiology as per discussed with the ER physicians she would make a contact and see what the suggestions from the cardiology probably patients might get a benefit to go to the [facility] for further evaluations with ongoing chest pain (2) Chest pain Qualifiers: Ischemic chest pain type: unspecified angina pectoris type Is this a current diagnosis for this admission?: Yes Plan: Continues to nitro and put a full dose of Lovenox aspirin (3) Coronary artery disease Qualifiers: Coronary Disease-Associated Artery/Lesion type: [place] artery Associated angina: with unspecified angina Is this a current diagnosis for this admission?: Yes Plan: Is probably might get a benefit to to going to the [facility] will continues to about medications (4) Hypertension Qualifiers: Hypertension type: essential hypertension Qualified Code(s): I10 - Essential (primary) hypertension Is this a current diagnosis for this admission?: Yes (5) Hyperlipidemia Qualifiers: Hyperlipidemia type: unspecified Qualified Code(s): E78.5 - Hyperlipidemia, unspecified Is this a current diagnosis for this admission?: Yes (6) Gastroesophageal reflux disease Qualifiers: Esophagitis presence: without esophagitis Qualified Code(s): K21.9 - Gastro-esophageal reflux disease without esophagitis Is this a current diagnosis for this admission?: Yes Plan: Consider to give a Protonix (7) Osteoarthritis Qualifiers: Osteoarthritis location: multiple joints Is this a current diagnosis for this admission?: Yes (8) Irritable bowel syndrome Qualifiers: Irritable bowel syndrome type: unspecified Qualified Code(s): K58.9 - Irritable bowel syndrome without diarrhea Is this a current diagnosis for this admission?: Yes - Time Time Spent with patient: 35 or more minutes Medications reviewed and adjusted accordingly: Yes Anticipated discharge: Tertiary Hospital Within: Other - Inpatient Certification Based on my medical assessment, after consideration of the patient's comorbidities, presenting symptoms, or acuity I expect that the services needed warrant INPATIENT care.: Yes I certify that my determination is in accordance with my understanding of Medicare's requirements for reasonable and necessary INPATIENT services [42 CFR 412.3e].: Yes Medical Necessity: Significant Comorbidiites Make Outpatient Treatment Too Risky, Need Close Monitoring Due to Risk of Patient Decompensation 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
[2019-05-08 20:41] VITALS: BP 144/97
--- NOTE | 2019-05-10 09:44 | EKG REPORT ---
SEVERITY:- OTHERWISE NORMAL ECG - SINUS BRADYCARDIA : Confirmed by: Dagoberto Pruett 10-May-2019 09:43:57
== END 2019-05-08 21:27 | disposition short-term general hospital (02) ==
LOC: ER 13:48
DX: I25.110 Atherosclerotic heart disease of native coronary artery with unstable angina pectoris (principal); I10 Essential (primary) hypertension; R00.1 Bradycardia, unspecified; R06.02 Shortness of breath; R07.89 Other chest pain; Z79.899 Other long term (current) drug therapy; Z88.2 Allergy status to sulfonamides; Z95.5 Presence of coronary angioplasty implant and graft; Z82.49 Family history of ischemic heart disease and other diseases of the circulatory system
CPT/HCPCS: 93005; 99291; 96372; 36415; 82553; 82550; 83735; 85025; 80053; 84484; 85379; 83880; 71046; 93010; A9270 ×2; J1650

== ENCOUNTER → 2019-06-28 | Outpatient (CLI) | payer MEDICARE, OTHER ==
--- NOTE | 2019-06-28 15:25 | RADIOLOGY REPORT (SQ) ---
EXAM DESCRIPTION: CTA CHEST COMPLETED DATE/TIME: 06/28/2019 2:50 pm REASON FOR STUDY: R06.02 SHORTNESS OF BREATH R06.02 SHORTNESS OF BREATH COMPARISON: None. TECHNIQUE: CT scan of the chest performed using helical scanning technique with dynamic intravenous contrast injection. Images reviewed with lung, soft tissue and bone windows. Reconstructed coronal and sagittal MPR images reviewed. Additional 3 dimensional post-processing performed to develop Maximal Intensity Projection images (SC P). All images stored on PACS. All CT scanners at this facility use dose modulation, iterative reconstruction, and/or weight based d osing when appropriate to reduce radiation dose to as low as reasonably achievable (ALARA). [facility]: Dose Right [facility]: CareDose [facility]: Dose Right [facility]: Teradose 4D [facility]: [employer] CONTRAST TYPE AND DOSE: Contrast/concentration: Isovue 350.00 mg/ml; Total Contrast Delivered: 55.0 ml; Total Saline Delivered: 55.0 ml Contrast bolus optimized for the pulmonary arteries. Not diagnostic for the aorta. RENAL FUNCTION: Creatinine 1.3 milligrams/deciliter. RADIATION DOSE: CT Rad equipment meets quality standard of care and radiation dose reduction techniq ues were employed. CTDIvol: 13.2 - 22.5 mGy. DLP: 604 mGy-cm. . LIMITATIONS: None. FINDINGS: LUNGS AND PLEURA: The trachea and main bronchi are patent. There is no bronchiectasis or mucus plugging. The mild mosaic attenuation of the lung parenchyma is nonspecific and could represen t air trapping. There is no alveolar consolidation or pulmonary nodule/mass. There is no pleural th ickening, calcification or effusion. There is no pneumothorax. AORTA AND GREAT VESSELS: Evaluation is limited as the contrast bolus was optimized for evaluation of the pulmonary arteries. The ascending thoracic aorta measures approximately 3.9 x 3.9 cm in diameter . There is no thoracic aortic intramural hematoma. HEART: The left ventricle is enlarged. There is no pericardial effusion. There is moderate to sever e atherosclerotic calcification of the coronary arteries. PULMONARY ARTERIES: No pulmonary emboli. HILAR AND MEDIASTINAL STRUCTURES: No enlarged mediastinal hilar lymph nodes. HARDWARE: None in the chest. UPPER ABDOMEN: Anterior interposition of the colon to the liver. There several bilateral caliceal ca lculi that measure up to 7 mm in transverse diameter. THYROID AND OTHER SOFT TISSUES: The lobes of the thyroid gland appear enlarged. There is no discrete thyroid nodule. There is no supraclavicular or hilar adenopathy. BONES: No acute findings. 3D MIPS: Confirm above findings. OTHER: No other finding. IMPRESSION: No pulmonary embolus. COMMENT: Quality ID # [id number]: Final reports with documentation of one or more dose reduction techniques (e.g., Automated exposure control, adjustment of the mA and/or kV according to patient size, use of iterative reconstruction technique) TECHNICAL DOCUMENTATION: JOB ID: [id number] [employer]- All Rights Reserved Reading location - IP/workstation name: [email or web address]-
== END ==
LOC: RAD 14:14
PROVIDERS: ATTEND Physician Assistant
DX: R06.02 Shortness of breath (principal)
CPT/HCPCS: 71275; 82565

== ENCOUNTER 2019-10-16 17:00 | Emergency (ER) | payer MEDICARE, OTHER ==
--- NOTE | 2019-10-16 17:42 | ER Document Report ---
ED Medical Screen (RME) - General Chief Complaint: Chest Pain Stated Complaint: CHEST PAIN Time Seen by Provider: 10/16/19 17:33 Primary Care Provider: JORDYN NDIAYE PA [Primary Care Provider] - Follow up as needed Mode of Arrival: Ambulatory Information source: Patient Notes: Patient presents complaining of left-sided chest pain that radiates to the left lateral rib area that started around 3:30 pm today. Patient states he took nitro and 4 baby aspirin today. Patient states that initially the pain was better but then he says that it did not help. Patient does complain of some shortness of breath. No nausea or vomiting. Patient does report playing basketball yesterday although denies any injury. also states that patient was recently diagnosed with an aneurysm that measured about 3 cm. Patient has a history of hypertension as well as 4 stents. I have greeted and performed a rapid initial assessment of this patient. A comprehensive ED assessment and evaluation of the patient, analysis of test results and completion of the medical decision making process will be conducted by additional ED providers. TRAVEL OUTSIDE OF THE [place] IN LAST 30 DAYS: No - Related Data Allergies/Adverse Reactions: Sulfa (Sulfonamide Antibiotics) Allergy (Severe, Verified 10/16/19 17:34) severe swelling in lips and tongue coffee (Coffea arabica) Adverse Reaction (Intermediate, Verified 10/16/19 17:34) SNEEZING, RUNNY NOSE wheat Adverse Reaction (Intermediate, Verified 10/16/19 17:34) SNEEZING,RUNNY NOSE TAPE Adverse Reaction (Intermediate, Uncoded 10/16/19 17:34) ITCHING Past Medical History - Past Medical History Cardiac Medical History: Reports: Hx Coronary Artery Disease, Hx Hypercholesterolemia, Hx Hypertension, Hx Peripheral Vascular Disease Denies: Hx Congestive Heart Failure, Hx Heart Attack Pulmonary Medical History: Reports: Hx Pneumonia Denies: Hx Asthma, Hx Bronchitis, Hx COPD, Hx Tuberculosis Neurological Medical History: Denies: Hx Cerebrovascular Accident, Hx Seizures Renal/ Medical History: Reports: Hx Benign Prostatic Hyperplasia, Hx Kidney Stones. Denies: Hx Peritoneal Dialysis GI Medical History: Reports: Hx Gastroesophageal Reflux Disease, Hx Hiatal Hernia, Hx Ulcer. Denies: Hx Hepatitis Musculoskeltal Medical History: Reports Hx Arthritis Psychiatric Medical History: Reports: Hx Depression Infectious Medical History: Denies: Hx Hepatitis Past Surgical History: Reports: Hx Cardiac Catheterization - 3 stents, Hx Coronary Stent, Hx Orthopedic Surgery - R knee, Carpal Tunnel. Denies: Hx Open Heart Surgery, Hx Pacemaker - Immunizations Hx Diphtheria, Pertussis, Tetanus Vaccination: Yes Physical Exam - Vital signs Vitals: Temp Pulse Resp BP Pulse Ox 97.5 F 50 L 20 123/75 96 10/16/19 17:19 10/16/19 17:19 10/16/19 17:19 10/16/19 17:19 10/16/19 17:19 - Respiratory Chest status: Tender Chest palpation: Tender - Cardiovascular Rhythm: Bradycardia Heart sounds: S1 appreciated, S2 appreciated Course - Vital Signs Vital signs: Temp Pulse Resp BP Pulse Ox 97.5 F 50 L 20 123/75 96 10/16/19 17:19 10/16/19 17:19 10/16/19 17:19 10/16/19 17:19 10/16/19 17:19 Doctor's Discharge - Discharge Referrals: JORDYN NDIAYE PA [Primary Care Provider] - Follow up as needed
--- NOTE | 2019-10-16 18:11 | RADIOLOGY REPORT (SQ) ---
EXAM DESCRIPTION: CHEST 2 VIEWS COMPLETED DATE/TIME: 10/16/2019 5:51 pm REASON FOR STUDY: cp COMPARISON: Chest x-ray 05/08/2019, 08/10/2018. CT chest 06/28/2019. EXAM PARAMETERS: NUMBER OF VIEWS: two views TECHNIQUE: Digital Frontal and Lateral radiographic views of the chest acquired. RADIATION DOSE: NA LIMITATIONS: none FINDINGS: LUNGS AND PLEURA: No consolidation, pneumothorax or pleural effusion. MEDIASTINUM AND HILAR STRUCTURES: No masses or contour abnormalities. HEART AND VASCULAR STRUCTURES: Heart normal size. No evidence for failure. BONES: No acute findings. HARDWARE: None in the chest. IMPRESSION: NO ACUTE RADIOGRAPHIC FINDING IN THE CHEST. TECHNICAL DOCUMENTATION: JOB ID: [id number] [employer]- All Rights Reserved Reading location - IP/workstation name: [email or web address]
--- NOTE | 2019-10-16 18:32 | EKG REPORT ---
SEVERITY:- OTHERWISE NORMAL ECG - SINUS BRADYCARDIA : Confirmed by: Louise Benz MD 16-Oct-2019 18:32:15
[2019-10-16 18:33] LABS: ABSOLUTE BASOPHILS # (AUTO) 0.1 10^3/uL (0.0-0.2); ABSOLUTE EOSINOPHILS # (AUTO) 0.2 10^3/uL (0.0-0.6); ABSOLUTE LYMPHOCYTES (AUTO) 1.2 10^3/uL (0.5-4.7); ABSOLUTE MONOCYTES (AUTO) 0.4 10^3/uL (0.1-1.4); BASOPHILS % (AUTO) 1.9 % (0-2); EOSINOPHILS % (AUTO) 4.3 % (0-6); HEMATOCRIT 43.1 % (37.9-51.0); HEMOGLOBIN 14.4 g/dL (13.5-17.0); LYMPHOCYTES % (AUTO) 31.2 % (13-45); MEAN CORPUSCULAR HEMOGLOBIN 30.7 pg (27.0-33.4); MEAN CORPUSCULAR HGB CONC 33.4 g/dL (32.0-36.0); MEAN CORPUSCULAR VOLUME 92 fl (80-97); MONOCYTES % (AUTO) 10.5 % (3-13); PLATELET COUNT 207 10^3/uL (150-450); RED BLOOD COUNT 4.68 10^6/uL (4.35-5.55); RED CELL DISTRIBUTION WIDTH 13.4 % (11.5-14.0); SEGMENTED NEUTROPHILS % (AUTO) 52.1 % (42-78); TOTAL CELLS COUNTED % (AUTO) 100 %; WHITE BLOOD COUNT 3.8 10^3/uL (4.0-10.5)
--- NOTE | 2019-10-16 18:51 | ER Document Report ---
Entered by JEFFERSON MARES SCRIBE 10/16/191811 Acting as scribe for:CECILE MACIAS MD ED Cardiac - General Chief Complaint: Chest Pain Stated Complaint: CHEST PAIN Time Seen by Provider: 10/16/19 17:33 Primary Care Provider: JORDYN NDIAYE PA [NO LOCAL MD] - Follow up as needed Mode of Arrival: Ambulatory Information source: Patient Notes: This 64 year old male patient presents to the ED today with complaints of left- sided chest pain with radiation to the left lateral rib area that began at 3:30 PM today. 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 Patient states that he went inside and sat down to check his blood pressure (186/106) and his heart rate w [facility] was in the 50-60 bpm range. Patient states that the pain increased so he took 4 baby aspirin and 2 NTG that "calmed down" the pain. Patient notes that the pain increased an hour later so he took 2 additional NTG with mild relief. Patient states that he played an aggressive game of basketball x1 day ago for x10 minutes, but he did not have any pain at that time. Patient reports some shortness of breath, but denies nausea or vomiting. The patient had similar chest pain with shortness of breath on 05/08/2019. He had a negative work-up in emergency room. He was transferred to [facility] where he had a stress test done that was unremarkable. Patient had an outpatient CTa chest and abdomen scan done on 06/28/2019 showing a 3.99 x 3.98 centimeter ascending aortic dilatation. The radiologist did not state aneurysm, however he did comment on no thrombus seen. TRAVEL OUTSIDE OF THE [place] IN LAST 30 DAYS: No - Related Data Allergies/Adverse Reactions: Sulfa (Sulfonamide Antibiotics) Allergy (Severe, Verified 10/16/19 17:34) severe swelling in lips and tongue coffee (Coffea arabica) Adverse Reaction (Intermediate, Verified 10/16/19 17:34) SNEEZING, RUNNY NOSE wheat Adverse Reaction (Intermediate, Verified 10/16/19 17:34) SNEEZING,RUNNY NOSE TAPE Adverse Reaction (Intermediate, Uncoded 10/16/19 17:34) ITCHING Past Medical History - General Information source: Patient - Social History Smoking Status: Never Smoker Cigarette use (# per day): No Chew tobacco use (# tins/day): No Smoking Education Provided: No Lives with: Spouse/Significant other Family History: Reviewed & Not Pertinent Patient has suicidal ideation: No Patient has homicidal ideation: No - Past Medical History Cardiac Medical History: Reports: Hx Coronary Artery Disease, Hx Hypercholesterolemia, Hx Hypertension, Hx Peripheral Vascular Disease Pulmonary Medical History: Reports: Hx Pneumonia Renal/ Medical History: Reports: Hx Benign Prostatic Hyperplasia, Hx Kidney Stones GI Medical History: Reports: Hx Gastroesophageal Reflux Disease, Hx Hiatal Hernia, Hx Ulcer Musculoskeletal Medical History: Reports Hx Arthritis Psychiatric Medical History: Reports: Hx Depression Past Surgical History: Reports: Hx Coronary Stent - x4 stents placed, Hx Orthopedic Surgery - R knee, Carpal Tunnel - Immunizations Hx Diphtheria, Pertussis, Tetanus Vaccination: Yes Review of Systems - Review of Systems Constitutional: No symptoms reported EENT: No symptoms reported Cardiovascular: See HPI, Chest pain Respiratory: See HPI, Short of breath Gastrointestinal: See HPI. denies: Nausea, Vomiting Genitourinary: No symptoms reported Male Genitourinary: No symptoms reported Musculoskeletal: See HPI, Other - Pain in left lateral rib area Skin: No symptoms reported Hematologic/Lymphatic: No symptoms reported Neurological/Psychological: No symptoms reported -: Yes All other systems reviewed and negative Physical Exam - Vital signs Vitals: Temp Pulse Resp BP Pulse Ox 97.5 F 50 L 20 123/75 96 10/16/19 17:19 10/16/19 17:19 10/16/19 17:19 10/16/19 17:19 10/16/19 17:19 Interpretation: Bradycardic - General General appearance: Alert - HEENT Head: Normocephalic, Atraumatic Eyes: Normal Pupils: PERRL - Respiratory Respiratory status: No respiratory distress Chest status: Tender - Anterior chest wall tenderness with palpation bilaterally Breath sounds: Normal Chest palpation: Normal - Cardiovascular Rhythm: Bradycardia Heart sounds: Normal auscultation Murmur: No - Abdominal Inspection: Normal Distension: No distension Bowel sounds: Normal Tenderness: Nontender Organomegaly: No organomegaly - Back Back: Normal, Nontender - Extremities General upper extremity: Normal inspection General lower extremity: Normal inspection - Neurological Neuro grossly intact: Yes - Psychological Associated symptoms: Normal affect, Normal mood - Skin Skin Temperature: Warm Skin Moisture: Dry Skin Color: Normal Course - Vital Signs Vital signs: Temp Pulse Resp BP Pulse Ox 98.0 F 50 L 15 152/89 H 100 10/16/19 20:23 10/16/19 17:19 10/16/19 21:01 10/16/19 21:00 10/16/19 21:01 - Laboratory Result Diagrams: 10/16/19 18:15 10/16/19 18:15 Laboratory results interpreted by me: 10/16/19 10/16/19 18:15 18:15 WBC 3.8 L Carbon Dioxide 31 H Creatinine 1.31 H Est GFR (MDRD) Non-Af 55 L - Diagnostic Test Radiology reviewed: Image reviewed, Reports reviewed - Chest x-ray is unremarkable. CT scan of the chest shows a 3.9 cm dilatation of the ascending thoracic aorta. This is unchanged from a CT scan done in June 2019. - EKG Interpretation by Me EKG shows normal: Sinus rhythm, [place], Intervals, QRS Complexes, ST-T Waves Rate: Bradycardia - 46 When compared to previous EKG there are: No significant change - Unchanged from 05/08/2019 when he had a sinus bradycardia of 45 with an otherwise normal EKG. Discharge - Discharge Clinical Impression: Chest wall pain, Mild dilation of ascending aorta Chest pain Qualifiers: Chest pain type: unspecified Qualified Code(s): R07.9 - Chest pain, unspecified Condition: Stable Disposition: HOME, SELF-CARE Additional Instructions: Chest Pain of Unclear Cause: The exact cause of your chest pain isn't clear. Fortunately, there is no evidence of a dangerous medical condition. Further testing may be required to find the source of the pain. Most often, we find that this pain is coming from the chest wall -- the muscles or rib joints in the chest. But chest pain can come from the lung and lung lining, the esophagus, the heart valves or heart lining, and even the stomach or gallbladder. Rest. Eat lightly until the pain is gone. We may prescribe medicine for pain and inflammation. You should call the physician immediately if the pain radiates to the shoulder, jaw or arms; if you start to run a fever or develop a cough; or if you develop shortness of breath, or other new or alarming symptoms. Your EKG and cardiac enzymes were normal this evening. CT scan shows borderline dilation of the ascending thoracic aorta. It is unchanged from the CT scan done in June 2019. For now you should continue your regular medications. Take Tylenol for chest wall pain. Limit your activity so as to avoid provoking additional chest pain. Follow-up with your carnival worker tomorrow to discuss your most recent chest riky n. RETURN TO THE EMERGENCY ROOM IF ANY NEW OR WORSENING SYMPTOMS. Referrals: JORDYN NDIAYE PA [NO LOCAL MD] - Follow up as needed Scribe Attestation: 10/16/19 20:09 I personally performed the services described in the documentation, reviewed and edited the documentation which was dictated to the scribe in my presence, and it accurately records my words and actions. I personally performed the services described in the documentation, reviewed and edited the documentation which was dictated to the scribe in my presence, and it accurately records my words and actions.
[2019-10-16 18:53] LABS: ALKALINE PHOSPHATASE 51 U/L (38-126); ANION GAP 6 (5-19); ASPARTATE AMINO TRANSFERASE 23 U/L (17-59); BILIRUBIN,DIRECT 0.3 mg/dL (0.0-0.4); BILIRUBIN,TOTAL 0.6 mg/dL (0.2-1.3); BLOOD UREA NITROGEN 14 mg/dL (7-20); CALCIUM 9.5 mg/dL (8.4-10.2); CARBON DIOXIDE 31 mmol/L (22-30); CHLORIDE 104 mmol/L (98-107); CREATINE KINASE 90 U/L (55-170); GLUCOSE 99 mg/dL (75-110); POTASSIUM 4.5 mmol/L (3.6-5.0); TOTAL PROTEIN 6.8 g/dL (6.3-8.2)
[2019-10-16] MEDS ORDERED: NORMAL SALINE 1000 ML 1,000 ML IV ONE (20:01)
--- NOTE | 2019-10-16 22:00 | RADIOLOGY REPORT (SQ) ---
EXAM DESCRIPTION: CT CHEST ANGIOGRAPHY WITHOUT THEN WITH IV CONTRAST COMPLETED DATE/TME: 10/16/2019 20:05 CLINICAL HISTORY: 64 years, Male, 4X4cm ascending aorta, chest pain COMPARISON: Prior CT from 06/28/2019 TECHNIQUE: Contrast enhanced CT of the chest was performed. Images were obtained after the uneventful administration of 55 mL of Omnipaque 350 intravenous contrast. MIPS were created. Images stored on PACS. All CT scanners at this facility use dose modulation, iterative reconstruction, and/or weight based dosing when appropriate to reduce radiation dose to as low as reasonably achievable (ALARA). [facility]: Dose Right [facility]: CareDose [facility]: Dose Right [facility]: Teradose 4D [facility]: MaistorPlus LIMITATIONS: None. FINDINGS: Central airways are patent. Lungs are clear. Mediastinal windows show no significant hilar or mediastinal lymph node enlargement. Calcifications are evident about the coronary vessels. The ascending thoracic aorta is borderline dilated, measuring 3.9 cm in short axis. An of contrast is identified within the thoracic aorta to exclude an underlying dissection. The study is adequate for the evaluation of pulmonary emboli. No filling defects are identified to the proximal segmental level. Limited evaluation of the upper abdomen reveals no suspicious finding. Bone windows show no destructive osseous lesions. IMPRESSION: No evidence of pulmonary embolism or other acute abnormality within the chest. Borderline dilated ascending thoracic aorta measuring 3.9 cm in short axis. Otherwise, no evidence of acute abnormality involving the thoracic aorta. TECHNICAL DOCUMENTATION: Quality ID # [id number]: Final reports with documentation of one or more dose reduction techniques (e.g., Automated exposure control, adjustment of the mA and/or kV according to patient size, use of iterative reconstruction technique) copyright 2011 [employer]- All Rights Reserved
[2019-10-16 22:31] VITALS: BP 153/92
== END 2019-10-16 22:39 | disposition home or self-care (01) ==
LOC: ER 17:00
DX: I77.810 Thoracic aortic ectasia (principal); R07.89 Other chest pain; R06.02 Shortness of breath; I25.10 Atherosclerotic heart disease of native coronary artery without angina pectoris; I10 Essential (primary) hypertension; R00.1 Bradycardia, unspecified; Z95.5 Presence of coronary angioplasty implant and graft; Z88.2 Allergy status to sulfonamides
CPT/HCPCS: 93005; 99285; 96360; 36415; 82550; 85025; 80053; 84484; 71046; 71275; 93010; J7030

== ENCOUNTER → 2019-10-27 | Outpatient (CLI) | payer MEDICARE, OTHER ==
--- NOTE | 2019-10-27 10:46 | RADIOLOGY REPORT (SQ) ---
EXAM DESCRIPTION: MRI HEAD WITHOUT COMPLETED DATE/TIME: 10/27/2019 8:29 am REASON FOR STUDY: BENIGN PAROXYSMAL POSITIONAL VERTIGO, UNSPEC LATERALLY (H81.10), DIZZINESS R42 DI ZZINESS AND GIDDINESS M54.2 CERVICALGIA COMPARISON: CT brain 11/28/2015 TECHNIQUE: Multiplanar imaging includes non-contrasted T1, T2, FLAIR, and diffusion with ADC map seq uences. Images stored on PACS. LIMITATIONS: None. FINDINGS: ANATOMY: No anomalies. Normal vascular flow voids. Pituitary fossa normal. CSF SPACES: Normal in size and contour. No hemorrhage. CEREBRUM: Sulci and gyri normal in size and contour. Small focus of right frontal deep periventricul ar chronic white matter disease axial FLAIR image 18, unchanged from CT 11/28/2015. No evidence of hem orrhage, mass, or extraaxial fluid collection. POSTERIOR FOSSA: No signal alteration. No hemorrhage. No edema, masses or mass effect. Internal bam tory canals, cerebello-pontine angles, mastoids normal. DIFFUSION IMAGING: Negative for acute or sub-acute infarction. ORBITS: No masses. Globes normal. PARANASAL SINUSES: No fluid levels. Mucosa normal. OTHER: No other significant finding. IMPRESSION: Minimal age-appropriate small vessel white matter disease. Otherwise unremarkable study EVIDENCE OF ACUTE STROKE: NO. TECHNICAL DOCUMENTATION: JOB ID: [id number] [employer]- All Rights Reserved Reading location - IP/workstation name: [email or web address]
--- NOTE | 2019-10-27 10:53 | RADIOLOGY REPORT (SQ) ---
EXAM DESCRIPTION: MRI CERVICAL SPINE WITHOUT COMPLETED DATE/TIME: 10/27/2019 8:29 am REASON FOR STUDY: CERVICALGIA (M54.2), CERVICAL RADICULOPATHY (M54.12) R42 DIZZINESS AND GIDDINESS M54.2 CERVICALGIA COMPARISON: Cervical spine plain films 10/01/2012 MRI brain 10/27/2019 TECHNIQUE: Sagittal and Axial imaging includes T1, T2, STIR and gradient echo sequences. LIMITATIONS: None. FINDINGS: ALIGNMENT: Reversal of cervical curvature VERTEBRAE: Intact. BONE MARROW: Normal. No marrow replacement or reactive changes. DISCS: Disc space loss of height at C3-4 and C5-6. Diffuse decreased T2 weighted intervertebral disc signal HARDWARE: None in the spine. CORD AND BASE OF BRAIN: Normal in size and signal intensity. SOFT TISSUES: Diffuse thyromegaly C1-C2: No significant spinal stenosis. C2-C3: No significant spinal stenosis or exit foraminal stenosis. C3-C4: No significant spinal stenosis or exit foraminal stenosis. Mild left facet hypertrophy C4-C5: Mild diffuse posterior disc bulging is present without significant central or foraminal stenos is. C5-C6: Broad diffuse posterior disc bulge and bony spurring partially effaces the ventral thecal sac without central stenosis. No right foraminal narrowing. Mild left foraminal narrowing from facet an d uncovertebral hypertrophy. C6-C7: No significant spinal stenosis or exit foraminal stenosis. C7-T1: No significant spinal stenosis or exit foraminal stenosis. UPPER THORACIC: Incompletely imaged. No significant spinal stenosis or exit foraminal stenosis. OTHER: No other significant finding. IMPRESSION: Very mild degenerative disc changes without significant central or foraminal stenosis TECHNICAL DOCUMENTATION: JOB ID: [id number]- All Rights Reserved Reading location - IP/workstation name: [email or web address]
== END ==
LOC: RAD 07:21
PROVIDERS: ATTEND Family Medicine
DX: M54.12 Radiculopathy, cervical region (principal); M54.2 Cervicalgia; H81.10 Benign paroxysmal vertigo, unspecified ear
CPT/HCPCS: 70551; 72141

== ENCOUNTER 2020-09-25 10:18 | Emergency (ER) | payer MEDICARE, OTHER ==
[2020-09-25 11:37] LABS: ABSOLUTE BASOPHILS # (AUTO) 0.1 10^3/uL (0.0-0.2); ABSOLUTE EOSINOPHILS # (AUTO) 0.1 10^3/uL (0.0-0.6); ABSOLUTE LYMPHOCYTES (AUTO) 1.3 10^3/uL (0.5-4.7); ABSOLUTE MONOCYTES (AUTO) 0.5 10^3/uL (0.1-1.4); ABSOLUTE NEUT (AUTO) 3.3 10^3/uL (1.7-8.2); BASOPHILS % (AUTO) 1.1 % (0-2); HEMATOCRIT 43.5 % (37.9-51.0); HEMOGLOBIN 15.2 g/dL (13.5-17.0); LYMPHOCYTES % (AUTO) 24.6 % (13-45); MEAN CORPUSCULAR HGB CONC 34.9 g/dL (32.0-36.0); MEAN CORPUSCULAR VOLUME 92 fl (80-97); PLATELET COUNT 230 10^3/uL (150-450); RED BLOOD COUNT 4.74 10^6/uL (4.35-5.55); RED CELL DISTRIBUTION WIDTH 13.6 % (11.5-14.0); SEGMENTED NEUTROPHILS % (AUTO) 63.3 % (42-78); TOTAL CELLS COUNTED % (AUTO) 100 %; WHITE BLOOD COUNT 5.1 10^3/uL (4.0-10.5)
[2020-09-25 11:44] LABS: INTERNATIONAL RATION (INR) 0.97; PROTHROMBIN TIME 13.1 SEC (11.4-15.4)
[2020-09-25 11:47] LABS: D-DIMER 0.88 ug/mL (0.00-0.50)
--- NOTE | 2020-09-25 11:48 | ER Document Report ---
Entered by JEFFERSON MARES SCRIBE 09/25/20 1102 Acting as scribe for:CECILE MACIAS MD ED General - General Chief Complaint: Chest Pain Stated Complaint: BREATHING TROUBLE Time Seen by Provider: 09/25/20 10:57 Primary Care Provider: ANIA HARRISON MD [Primary Care Provider] - Follow up as needed Mode of Arrival: Ambulatory Information source: Patient Notes: This 65 year old male patient with a history of hypertension, hyperlipidemia, CA D s/p stent placement x4 presents to the ED today with complaints of shortness of breath. Patient states that he has been short of breath for "over a year," but it became worse while he was on his normal walk this morning and it was accompanied by left-sided chest pain. He reports that he normally only takes his inhaler when he gets up in the morning, but he had to use it x3 times after his walk. TRAVEL OUTSIDE OF THE [place] IN LAST 30 DAYS: No - Related Data Allergies/Adverse Reactions: Sulfa (Sulfonamide Antibiotics) Allergy (Severe, Verified 09/25/20 12:59) severe swelling in lips and tongue coffee (Coffea arabica) Adverse Reaction (Intermediate, Verified 09/25/20 12:59) SNEEZING, RUNNY NOSE wheat Adverse Reaction (Intermediate, Verified 09/25/20 12:59) SNEEZING,RUNNY NOSE TAPE Adverse Reaction (Intermediate, Uncoded 09/25/20 12:59) ITCHING Past Medical History - General Information source: Patient, [facility] Records - Social History Smoking Status: Never Smoker Cigarette use (# per day): No Chew tobacco use (# tins/day): No Smoking Education Provided: No Frequency of alcohol use: None Drug Abuse: None Lives with: Spouse/Significant other Family History: Reviewed & Not Pertinent Patient has suicidal ideation: No Patient has homicidal ideation: No - Past Medical History Cardiac Medical History: Reports: Hx Coronary Artery Disease, Hx Hyperc holesterolemia, Hx Hypertension, Hx Peripheral Vascular Disease Pulmonary Medical History: Reports: Hx Pneumonia Renal/ Medical History: Reports: Hx Benign Prostatic Hyperplasia, Hx Kidney Stones GI Medical History: Reports: Hx Gastroesophageal Reflux Disease, Hx Hiatal Hernia, Hx Ulcer Musculoskeletal Medical History: Reports Hx Arthritis Psychiatric Medical History: Reports: Hx Depression Past Surgical History: Reports: Hx Cardiac Catheterization - 3 stents, Hx Coronary Stent - x4 stents placed, Hx Orthopedic Surgery - R knee, Carpal Tunnel - Immunizations Hx Diphtheria, Pertussis, Tetanus Vaccination: Yes Review of Systems - Review of Systems Constitutional: No symptoms reported EENT: No symptoms reported Cardiovascular: See HPI, Chest pain Respiratory: See HPI, Short of breath Gastrointestinal: No symptoms reported Genitourinary: No symptoms reported Male Genitourinary: No symptoms reported Musculoskeletal: No symptoms reported Skin: No symptoms reported Hematologic/Lymphatic: No symptoms reported Neurological/Psychological: No symptoms reported -: Yes All other systems reviewed and negative Physical Exam - Vital signs Vitals: Temp Pulse Resp BP Pulse Ox 98.2 F 74 20 107/68 96 09/25/20 10:09/25/20 10:29 09/25/20 10:09/25/20 10:29 09/25/20 10:29 Interpretation: Normal - General General appearance: Alert, Anxious - HEENT Head: Normocephalic, Atraumatic Eyes: Normal Extraocular movements intact: Yes Pupils: PERRL Neck: Normal, Supple - Respiratory Respiratory status: Other - Patient is hyperventilating. Pulse ox is 96-98% on RA Chest status: Nontender Breath sounds: Normal Chest palpation: Normal - Cardiovascular Rhythm: Regular Heart sounds: Normal auscultation Murmur: No Friction rub: No Gallop: None auscultated - Abdominal Inspection: Normal Distension: No distension Bowel sounds: Normal Tenderness: Nontender - Abdomen soft Organomegaly: No organomegaly - Back Back: Normal, Nontender - Extremities General upper extremity: Normal inspection General lower extremity: Normal inspection. No: Edema - Neurological Neuro grossly intact: Yes Orientation: AAOx4 [place] Coma Scale Eye Opening: Spontaneous Ronnie Coma Scale Verbal: Oriented Ronnie Coma Scale Motor: Obeys Commands Ronnie Coma Scale Total: 15 - Psychological Associated symptoms: Anxious - Skin Skin Temperature: Warm Skin Moisture: Dry Skin Color: Normal Course - Vital Signs Vital signs: Temp Pulse Resp BP Pulse Ox 98.2 F 74 23 H 130/97 H 94 09/25/20 10:29 09/25/20 10:29 09/25/20 15:01 09/25/20 15:00 09/25/20 15:01 - Laboratory Results Result Diagrams: 09/25/20 11:10 09/25/20 13:18 Laboratory Results Interpreted: 09/25/20 09/25/20 11:10 13:18 D-Dimer 0.88 H Sodium 136.9 L Alkaline Phosphatase 36 L Creatine Kinase 54 L Total Protein 5.9 L Critical Laboratory Results Reviewed: No Critical Results - Radiology Results Radiology Results Interpreted: 09/25/20 15:54 CTA chest shows dependent ground-glass attenuation in both lower lobes most consistent with atelectasis. No infiltrates. No PEs. No other abnormalities noted. Critical Radiology Results Reviewed: No Critical Results Discharge - Discharge Clinical Impression: Dyspnea Qualifiers: Dyspnea type: shortness of breath Qualified Code(s): R06.02 - Shortness of breath; R06.00 - Dyspnea, unspecified; R06.01 - Orthopnea Condition: Stable Disposition: HOME, SELF-CARE Additional Instructions: Dyspnea, Nonspecific You were evaluated for shortness of breath, or dyspnea. Dyspnea has many causes, and some are more serious than others. Sometimes it's impossible to diagnose the cause of dyspnea with the tests that are available on an emergency basis. Based on our evaluation today, you do not need hospitalization now. We found no evidence of pneumonia, collapsed lung, blood clots in the lung, tumors, or heart failure. Causes of non-specific dyspnea can include asthma or bronchospasm, hyperventilation, emotional distress, heart disease, emphysema, fibrosis of the lung, and stiffness of the chest wall. In healthy individuals with a single episode, it's sometimes reasonable to do nothing but wait to see if the problem occurs again. Additional tests used to evaluate dyspnea can include cardiac stress testing, echocardiography, pulmonary function testing, CAT scan of the chest, bronchoscopy or pulmonary biopsy. Return if shortness of breath persists or worsens, or if you develop chest pain, fever, cough, confusion, or fainting. No explanation was found for your feelings of shortness of breath today. The CT scan of your chest was normal and the lungs were clear. Limit your activity for the next few days to see if your shortness of breath sensation gets better. Follow-up with your primary care provider if not improving. RETURN TO THE EMERGENCY ROOM IF ANY NEW OR WORSENING SYMPTOMS. Referrals: ANIA HARRISON MD [Primary Care Provider] - Follow up as needed I personally performed the services described in the documentation, reviewed and edited the documentation which was dictated to the scribe in my presence, and it accurately records my words and actions.
--- NOTE | 2020-09-25 12:02 | RADIOLOGY REPORT (SQ) ---
EXAM DESCRIPTION: CHEST SINGLE VIEW IMAGES COMPLETED DATE/TIME: 09/25/2020 11:50 am REASON FOR STUDY: GRAY COMPARISON: 10/16/2019 EXAM PARAMETERS: NUMBER OF VIEWS: One view. TECHNIQUE: Single frontal radiographic view of the chest acquired. RADIATION DOSE: NA LIMITATIONS: None. FINDINGS: LUNGS AND PLEURA: No opacities, masses or pneumothorax. No pleural effusion. MEDIASTINUM AND HILAR STRUCTURES: No masses. Contour normal. HEART AND VASCULAR STRUCTURES: Heart normal in size. Normal vasculature. BONES: No acute findings. Unchanged lucent lesion within the glenoid with benign characteristics on prior CT (narrow zone of transition and corticated margin). HARDWARE: None in the chest. OTHER: No other significant finding. IMPRESSION: No evidence of acute cardiopulmonary process. TECHNICAL DOCUMENTATION: JOB ID: [id number] 2010 [employer]- All Rights Reserved Reading location - IP/workstation name: [email or web address]
[2020-09-25 12:16] LABS: APPEARANCE,URINE CLEAR; BILIRUBIN,URINE NEGATIVE (NEGATIVE); COLOR,URINE STRAW; GLUCOSE, URINE NEGATIVE (NEGATIVE); KETONES,URINE NEGATIVE (NEGATIVE); LEUKOCYTE ESTERASE,URINE NEGATIVE (NEGATIVE); NITRITE,URINE NEGATIVE (NEGATIVE); PROTEIN,URINE NEGATIVE (NEGATIVE); URINE SPECIFIC GRAVITY 1.004; UROBILINOGEN,URINE NEGATIVE mg/dL (<2.0)
--- NOTE | 2020-09-25 13:12 | EKG REPORT ---
SEVERITY:- NORMAL ECG - SINUS BRADYCARDIA : Confirmed by: Gabriel Sevilla MD 25-Sep-2020 13:11:28
[2020-09-25 14:06] LABS: ALBUMIN 3.5 g/dL (3.5-5.0); ALKALINE PHOSPHATASE 36 U/L (38-126); ANION GAP 5 (5-19); ASPARTATE AMINO TRANSFERASE 21 U/L (17-59); BILIRUBIN,DIRECT 0.2 mg/dL (0.0-0.4); BILIRUBIN,TOTAL 0.8 mg/dL (0.2-1.3); BLOOD UREA NITROGEN 16 mg/dL (7-20); CALCIUM 8.9 mg/dL (8.4-10.2); CARBON DIOXIDE 28 mmol/L (22-30); CHLORIDE 104 mmol/L (98-107); CREATINE KINASE 54 U/L (55-170); GLUCOSE 109 mg/dL (75-110); POTASSIUM 4.6 mmol/L (3.6-5.0); TOTAL PROTEIN 5.9 g/dL (6.3-8.2)
[2020-09-25 14:17] LABS: NT PRO BNP 50 pg/mL (<125)
[2020-09-25 14:20] LABS: TROPONIN I < 0.012 ng/mL
[2020-09-25] MEDS ORDERED: NORMAL SALINE 1000 ML 1,000 ML IV ONE (14:36)
--- NOTE | 2020-09-25 15:40 | RADIOLOGY REPORT (SQ) ---
EXAM DESCRIPTION: CTA CHEST IMAGES COMPLETED DATE/TIME: 09/25/2020 3:31 pm REASON FOR STUDY: Elevated D-dimer, shortness of breath COMPARISON: 10/16/2019 TECHNIQUE: CT scan of the chest performed using helical scanning technique with dynamic intravenous contrast injection. Images reviewed with lung, soft tissue and bone windows. Reconstructed coronal and sagittal MPR images reviewed. Additional 3 dimensional post-processing performed to develop Maximal Intensity Projection images (DC P). All images stored on PACS. All CT scanners at this facility use dose modulation, iterative reconstruction, and/or weight based d osing when appropriate to reduce radiation dose to as low as reasonably achievable (ALARA). [facility]: Dose Right [facility]: CareDose [facility]: Dose Right [facility]: Teradose 4D [facility]: [employer] CONTRAST TYPE AND DOSE: contrast/concentration: Isovue 350.00 mmol/ml; Total Contrast Delivered: 62. 0 ml; Total Saline Delivered: 50.5 ml RENAL FUNCTION: GFR > 60. RADIATION DOSE: CT Rad equipment meets quality standard of care and radiation dose reduction techniq ues were employed. CTDIvol: 13.2 - 14.8 mGy. DLP: 528 mGy-cm. . LIMITATIONS: None. FINDINGS: LUNGS AND PLEURA: Dependent ground-glass attenuation in both lower lobes most consistent w ith atelectasis. No infiltrate. AORTA AND GREAT VESSELS: No aneurysm. Contrast bolus not optimized for the aorta. HEART: No pericardial effusion. PULMONARY ARTERIES: No emboli visualized in the main pulmonary arteries or the segmental branches. HILAR AND MEDIASTINAL STRUCTURES: No identified masses or abnormal nodes. HARDWARE: None in the chest. UPPER ABDOMEN: No significant findings. Limited exam. THYROID AND OTHER SOFT TISSUES: No masses. No adenopathy. BONES: No acute or significant finding. 3D MIPS: Confirm above findings. OTHER: No other significant finding. IMPRESSION: No PE. No acute findings. COMMENT: Quality ID # [id number]: Final reports with documentation of one or more dose reduction techniques (e.g., Automated exposure control, adjustment of the mA and/or kV according to patient size, use of iterative reconstruction technique) TECHNICAL DOCUMENTATION: JOB ID: [id number] 2010 [employer]- All Rights Reserved Reading location - IP/workstation name: [email or web address]
[2020-09-25 16:08] VITALS: BP 150/82
== END 2020-09-25 16:18 | disposition home or self-care (01) ==
LOC: ER 10:18
DX: R06.02 Shortness of breath (principal); R06.01 Orthopnea; R07.9 Chest pain, unspecified; I10 Essential (primary) hypertension; E78.5 Hyperlipidemia, unspecified; I25.10 Atherosclerotic heart disease of native coronary artery without angina pectoris; Z88.2 Allergy status to sulfonamides
CPT/HCPCS: 93005; 99285; 96360; 36415; 82550; 83735; 85025; 85610; 80053; 81001; 84484; 85379; 83880; 71045; 71275; 93010; J7030